=== PATIENT | female | born 1960 | race Caucasian/White ===

== ENCOUNTER → 2017-03-16 | Outpatient (CLI) | payer SELFPAY ==
[~2017-03-16] MED LIST: CATHETER FLUSH 10 ML SYR IV PRN; IOHEXOL 350 MG/ML 100 ML (OMNIPAQUE 350) VIAL IV ONE; NS 100 ML (IVPB) BAG IV ONE
--- NOTE | 2017-03-16 17:52 | Diagnostic Imaging Report ---
PROCEDURE: CT chest with contrast only. TECHNIQUE: Multiple contiguous axial images were obtained through the chest after administration of intravenous contrast. INDICATION: Coughing. History given of lung nodule. No previous for comparison. FINDINGS: The lungs show hyperaeration. There is basilar scarring on the left. There is also some pleural plaquing anteriorly on the left which contains calcification. This may explain the density on outside chest x-ray. There is also a calcified granuloma on the right within the right upper lobe measuring 1.5 cm. Aorta and pulmonary arteries show normal enhancement following IV contrast. No mediastinal or hilar adenopathy of pathologic size. No pleural effusions or pericardial effusions. IMPRESSION: 1. 1.5 cm calcified granuloma in the right upper lobe. 2. There is some pleural plaquing anteriorly on the left chest wall with calcification. 3. There is scarring in the left lung base along the costophrenic angle. Dictated on workstation # [id number]
== END ==
LOC: RAD 15:43
PROVIDERS: ATTEND Nurse Practitioner Family
DX: J84.10 Pulmonary fibrosis, unspecified (principal); J92.9 Pleural plaque without asbestos
CPT/HCPCS: 71260

== ENCOUNTER → 2017-07-17 | Outpatient (CLI) | payer SELFPAY ==
[~2017-07-17] MED LIST changes: +AMIT10TA6 PO; -CATHETER FLUSH 10 ML SYR IV PRN; +DULO30CA3 PO; +GABA600T PO; +MELO15TA14 PO; +METH750T3 PO; -NS 100 ML (IVPB) BAG IV ONE; +NS 250 ML (IVPB) BAG IV ONE; +SIMV20TA3 PO; +TRAM50TA2 PO
--- NOTE | 2017-07-17 08:17 | Diagnostic Imaging Report ---
PROCEDURE: CT abdomen and pelvis with and without contrast. TECHNIQUE: Precontrast acquisitions were acquired through the abdomen and pelvis. Multiple contiguous axial images were obtained through the abdomen and pelvis after the administration of intravenous contrast. INDICATION: Left lower quadrant abdominal pain. No focal hepatic or splenic lesion is identified. Gallbladder, pancreas and adrenal glands are unremarkable. There is also a normal appearance to both kidneys without evidence of free fluid in the abdomen or pelvis. There is diffuse fluid distention of colon and multiple small bowel loops. No definite transition point is seen and there is no evidence of localized inflammation. The appendix is unremarkable in retrocecal location. IMPRESSION: Fluid distention of bowel without definite transition point to indicate obstruction. Otherwise, no acute abnormalities identified. Dictated by: Dictated on workstation # [id number]
== END ==
LOC: RAD 07:14
PROVIDERS: ATTEND Internal Medicine Gastroenterology
DX: R10.32 Left lower quadrant pain (principal)
CPT/HCPCS: 74178

== ENCOUNTER 2017-10-10 16:57 | Emergency (ER) | payer OTHER ==
[~2017-10-10] VITALS: Ht 177.8 cm; Wt 43.1 kg
[2017-10-10] MEDS ORDERED: GABA600T PO (17:29)
[2017-10-10] MEDS ORDERED: SIMV20TA3 PO (17:29)
[2017-10-10] MEDS ORDERED: AMIT10TA6 PO (17:29)
[2017-10-10] MEDS ORDERED: MELO15TA14 PO (17:29)
[2017-10-10] MEDS ORDERED: DULO30CA3 PO (17:29)
[2017-10-10] MEDS ORDERED: METH750T3 PO (17:29)
[2017-10-10] MEDS ORDERED: TRAM50TA2 PO (17:29)
[2017-10-10] MEDS ORDERED: CYCLOBENZAPRINE 10 MG (FLEXERIL) TAB PO STA (17:42)
--- NOTE | 2017-10-10 17:48 | ED Back Pain ---
General Chief Complaint: Back Problems Stated Complaint: BACK PAIN Nursing Triage Note: PT REPORTS SHE LEANED OVER ET STRAINED RIGHT LATERAL BACK AT 1500. PAIN IS NOT SUBSIDING DESPITE PT'S REGULAR PAIN CONTROL MEDS. Nursing Sepsis Screen: No Definite Risk History of Present Illness Date Seen by Provider: Oct 10, 2017 Time Seen by Provider: 17:35 Initial Comments 57-year-old female presents for right-sided low back pain. She reports that at 1500 today she was leaning to the right when she felt a pulling sensation in her right lower back. Since then she's been having significant pain. She takes multiple medications for pain and muscle spasms related to her fibromyalgia. She last took tramadol at 0900 this morning. She denies any bowel or bladder changes since the injury. Denies any radicular or paresthesia symptoms in either lower extremity. Allergies and Home Medications Allergies Coded Allergies: carisoprodol (Unverified Adverse Reaction, Unknown, 10/10/17) Home Medications Amitriptyline HCl 10 Mg Tablet, 30 MG PO HS, (Reported) Duloxetine HCl 30 Mg Capsule.dr, 30 MG PO DAILY, (Reported) Gabapentin 600 Mg Tablet, 600 MG PO BID, (Reported) Meloxicam 15 Mg Tablet, 15 MG PO DAILY, (Reported) Methocarbamol 750 Mg Tablet, 750 MG PO BID, (Reported) Simvastatin 20 Mg Tablet, 20 MG PO DAILY, (Reported) Tramadol HCl 50 Mg Tablet, 50 MG PO BID, (Reported) Patient Home Medication List Home Medication List Reviewed: Yes Constitutional: no symptoms reported, see HPI Musculoskeletal: see HPI, back pain All Other Systems Reviewed Negative Unless Noted: Yes Past Lwlysxc-Ztyhet-Xnvyuh Hx Past Med/Social Hx: Reviewed Nursing Past Med/Soc Hx Patient Social History Alcohol Use: Denies Use Recreational Drug Use: No Smoking Status: Current Everyday Smoker Type Used: Cigarettes Recent Foreign Travel: No Contact w/Someone Who Travel: No Recent Infectious Disease Expo: No Recent Hopitalizations: No Physical Abuse: No Sexual Abuse: No Mistreated: No Fear: No Seasonal Allergies Seasonal Allergies: No Past Medical History Surgeries: Yes (LAPAROSCOPY, CSPINE SURGERY) Orthopedic Respiratory: No Cardiac: No Neurological: Yes Headaches /Migraines, Neuropathy Genitourinary: No Musculoskeletal: Yes (BONE SPURS) Arthritis, Fibromyalgia Endocrine: No Cancer: No Psychosocial: No Nursing Suicide Risk Score: 0 Integumentary: No Blood Disorders: No Physical Exam Vital Signs Vital Signs - First Documented 10/10/17 17:19 Temp 97.8 Pulse 71 Resp 16 B/P (MAP) 133/81 (98) Pulse Ox 94 O2 Delivery Room Air Capillary Refill : Less Than 3 Seconds Height, Weight, BMI Height: 5', 10.00" Weight: 95lbs oz, 43.872678fi Method:Stated ,BMI General Appearance: No Apparent Distress, WD/WN, Thin Neck: Full Range of Motion, Normal Inspection, Non Tender, Supple Cardiovascular: Regular Rate, Rhythm, No Murmur, Normal Peripheral Pulses Respiratory: Chest Non Tender, Lungs Clear, Normal Breath Sounds Gastrointestinal: Normal Bowel Sounds, Non Tender, Soft Back: Decreased Range of Motion, Muscle Spasm; No Vertebral Tenderness; Other ( right paraspinal lumbar tenderness. Limitation of motion lumbar spine secondary to pain. PowerV/V L5 to S1.) Neurologic/Psychiatric: Alert, Oriented x3, No Motor/Sensory Deficits, Normal Mood/Affect Skin: Normal Color, Warm/Dry Progress/Results/Core Measures Results/Orders My Orders Orders - WILLY ORTIZ Cyclobenzaprine Tablet (Flexeril Tablet) (10/10/17 17:42) Tramadol Tablet (Ultram Tablet) (10/10/17 17:42) Vital Signs/I&O 10/10/17 10/10/17 17:19 18:50 Temp 97.8 Pulse 71 74 Resp 16 16 B/P (MAP) 133/81 (98) 127/82 Pulse Ox 94 95 O2 Delivery Room Air Room Air Blood Pressure Mean: 98 Departure Impression Primary Impression: Lumbar strain Qualified Codes: S39.012A - Strain of muscle, fascia and tendon of lower back , initial encounter Disposition: HOME, SELF-CARE Condition: Improved Departure-Patient Inst. Decision time for Depature: 18:20 Referrals: TRACY LOFTON DO (PCP) Primary Care Physician BANG ARDON (Family) Primary Care Physician Patient Instructions: Lumbar Muscle Strain (DC) Add. Discharge Instructions: Alternate between heat and ice to your low back for pain. Tomorrow you may begin gentle back stretches. Continue to use her muscle relaxant and pain medications that have been previously prescribed. Follow-up with your primary care provider in 2-3 days if symptoms are not improving. Return to emergency department for new, acute medical problems. All discharge instructions reviewed with patient and/or family. Voiced understanding. Copy Copies To 1: TRACY LOFTON AMY ARNP Oct 10, 2017 17:48
[2017-10-10 18:50] VITALS: BP 127/82
== END 2017-10-10 18:50 | disposition home or self-care (01) ==
LOC: EDUNIT# 16:57 → ER 16:59
DX: S39.012A Strain of muscle, fascia and tendon of lower back, initial encounter (principal); G43.909 Migraine, unspecified, not intractable, without status migrainosus; F17.210 Nicotine dependence, cigarettes, uncomplicated; Z88.8 Allergy status to other drugs, medicaments and biological substances; X50.0XXA Overexertion from strenuous movement or load, initial encounter
CPT/HCPCS: 99283

== ENCOUNTER 2017-12-08 08:12 | Day surgery (SDC) | payer OTHER ==
[~2017-12-08] VITALS: Ht 177.8 cm; Wt 43.1 kg
[~2017-12-08 08:12] MED LIST changes: -IOHEXOL 350 MG/ML 100 ML (OMNIPAQUE 350) VIAL IV ONE; -NS 250 ML (IVPB) BAG IV ONE
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
[2017-12-08] MEDS ORDERED: LACTATED RINGERS 1,000 ML IV STA (08:28)
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
[2017-12-08] MEDS ORDERED: LACTATED RINGERS 1,000 ML IV ONE (08:31)
--- OUTSIDE RECORDS SUMMARY | 2017-12-08 08:31 | XMS REPORT ---
Author Author BRI PATEL [facility] eClinical[employer] Address Unknown Phone Unavailable Care Team Providers Care Stockroom Attendant Name Role Phone BRI PATEL Unavailable Allergies No Known Allergies Problems Problem Type Condition ICD-9 Code Onset Dates Condition Status Problem Routine adult health maintenance V70.0 Active Problem Hypertension 401.9 Active Problem Neuropathic pain of shoulder 354.9 Active Problem Neuropathic pain of hand 354.9 Active Medications Medication Code System Code Instructions Start Date End Date Status Dosage Pravastatin Sodium [facility] [address]-66 20 MG Orally Once a day at night Dec 01, 2014 1 tablet Results No Known Results Summary Purpose eClinicalWorks Submission
--- OUTSIDE RECORDS SUMMARY | 2017-12-08 08:31 | XMS REPORT ---
Author Author BANG ARDON Organization [facility] Address [address] [place] [address] Care Team Providers Care Outbound Telemarketing Representative Name Role Phone BANG ARDON Unavailable PROBLEMS Type Condition ICD9-CM Code KFF41-VP Code Onset Dates Condition Status SNOMED Code Problem Difficulty swallowing R13.10 Active 59000813 Problem Essential hypertension I10 Active 19647656 Problem Cervicalgia M54.2 Active 4961328503832 Problem Neuropathic pain of hand G56.90 Active 419127543 Problem Tendonitis of ankle, left M77.52 Active 365933978 Problem Hypokalemia E87.6 Active 55467567 Problem Dyslipidemia E78.5 Active 526899611 Problem Tobacco abuse Z72.0 Active 54256564 Problem Fibromyalgia M79.7 Active 00494530 Problem Chronic pain due to injury G89.21 Active 162239811 ALLERGIES No Known Allergies SOCIAL HISTORY No smoking Hx information available PLAN OF CARE VITAL SIGNS MEDICATIONS Medication Instructions Dosage Frequency Start Date End Date Duration Status Tramadol HCl 50 mg Orally every 12 hours prn must last 28 days 1 tablet as needed for pain Active Hydrochlorothiazide 12.5 MG Orally Once a day 1 capsule 24h 90 days Active RESULTS No Results PROCEDURES No Known procedures IMMUNIZATIONS No Known Immunizations
--- OUTSIDE RECORDS SUMMARY | 2017-12-08 08:31 | XMS REPORT ---
Author Author BANG ARDON [facility] eClinicalWorks Address Unknown Phone Unavailable Care Team Providers Care Benefits Advisor Name Role Phone BANG ARDON CP Unavailable Allergies, Adverse Reactions, Alerts Substance Reaction Event Type Soma Rash Drug Allergy Problems Problem Type Condition Code Onset Dates Condition Status Problem Cervicalgia M54.2 Active Problem Neuropathic pain of hand G56.90 Active Problem Difficulty swallowing R13.10 Active Problem Hypokalemia E87.6 Active Problem Chronic pain due to injury G89.21 Active Problem Tendonitis of ankle, left M77.52 Active Problem Tobacco abuse Z72.0 Active Problem Essential hypertension I10 Active Problem Fibromyalgia M79.7 Active Problem Dyslipidemia E78.5 Active Assessment Acute non-recurrent maxillary sinusitis J01.00 Active Assessment Hypokalemia E87.6 Active Assessment Essential hypertension I10 Active Assessment Neuropathic pain of hand G56.90 Active Assessment Fibromyalgia M79.7 Active Assessment Chronic pain due to injury G89.21 Active Assessment Dyslipidemia E78.5 Active Assessment Cervicalgia M54.2 Active Medications Medication Code System Code Instructions Start Date End Date Status Dosage Methocarbamol [facility] [address]-24 750 MG Orally 4 times a day 1 tablet Meloxicam [facility] [address]-73 15 MG Orally Once a day 1 tablet Azithromycin [facility] [address]-52 250 MG Orally Once a day Feb 06, 2016 Feb 11, 2016 2 tablets on the first day, then 1 tablet daily for 4 days Amitriptyline HCl [facility] [address]-22 10 mg Orally Once a day (30mg total) 3 tablet at bedtime Tramadol HCl [facility] [address]-38 50 mg Orally every 12 hours prn must last 28 days 1 tablet as needed for pain Cymbalta [facility] [address]-71 30 MG Orally Once a day 1 capsule Gabapentin [facility] [address]-21 600 MG Orally Once a day (total of 900 mg) 1.5 tablet Simvastatin [facility] [address]-52 20 mg Orally Once a day 1 tablet in the evening Voltaren [facility] [address]-19 1 % Transdermal 2 times a day not defined Emjoi TENS ND 0 tens unit externally 2 times a day as directed Hydrochlorothiazide [facility] [address]-91 12.5 MG Orally Once a day 1 capsule Procedures Procedure Coding System Code Date Office Visit, Est Pt., Level 4 CPT-4 09478 Feb 06, 2016 Vital Signs Date/Time: Feb 06, 2016 Cardiac Monitoring Heart Rate 88 bpm Weight 101.8 lbs Height 5'8" in BMI 15.48 Index Blood Pressure Diastolic 68 mmHg Blood Pressure Systolic 108 mmHg Results No Known Results Summary Purpose eClinicalWorks Submission
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
--- OUTSIDE RECORDS SUMMARY | 2017-12-08 08:32 | XMS REPORT ---
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
--- OUTSIDE RECORDS SUMMARY | 2017-12-08 08:32 | XMS REPORT ---
Author Author BANG ARDON [facility] [employer] Address Unknown Phone Unavailable Care Team Providers Care Steam Fitter Helper Name Role Phone BANG ARDON Unavailable Allergies, Adverse Reactions, Alerts Substance Reaction [...] M79.7 Active Problem Dyslipidemia E78.5 Active Assessment Hypokalemia E87.6 Active Assessment Fibromyalgia M79.7 Active Assessment Tendonitis of ankle, left M77.52 Active Assessment Neuropathic pain of hand G56.90 Active Assessment Dyslipidemia E78.5 Active Assessment Chronic pain due to injury G89.21 Active Assessment Essential hypertension I10 Active Assessment Cervicalgia M54.2 Active Medications Medication Code System Code Instructions Start Date End Date Status Dosage Meloxicam [facility] [address]-38 15 MG Orally Once a day 1 tablet Tramadol HCl [facility] [address]-21 50 mg Orally every 12 hours prn must last 28 days 1 tablet as needed for pain Cymbalta [facility] [address]-04 30 MG Orally Once a day 1 capsule Voltaren [facility] [address]-68 1 % Transdermal 2 times a day not defined Methocarbamol [facility] [address]-44 750 MG Orally 4 times a day 1 tablet PredniSONE [facility] [address]-83 10 mg Orally twice a day Nov 06, 2015Nov 1 tablet Simvastatin [facility] [address]-27 20 mg Orally Once a day 1 tablet in the evening Hydrochlorothiazide [facility] [address]-10 12.5 MG Orally Once a day 1 capsule Amitriptyline HCl [facility] [address]-81 10 mg Orally Once a day (30mg total) 3 tablet at bedtime Emjoi TENS NDC 0 tens unit externally 2 times a day as directed Gabapentin [facility] [address]-20 600 MG Orally Once a day (total of 900 mg) 1.5 tablet Procedures Procedure Coding System Code Date LIPID PANEL CPT-4 26443 Nov 06, 2015 VENIPUNCT, ROUTINE* CPT-4 27912 Nov 06, 2015 COMPREHEN METABOLIC PANEL CPT-4 48089 Nov 06, 2015 Office Visit, Est Pt., Level 4 CPT-4 09099 Nov 06, 2015 Vital Signs Date/Time: Nov 06, 2015 Cardiac Monitoring Heart Rate 80 bpm Weight 102.6 lbs Height 5'8" in BMI 15.60 Index Blood Pressure Diastolic 54 mmHg Blood Pressure Systolic 92 mmHg Results No Known Results Summary Purpose eClinicalWorks Submission
--- OUTSIDE RECORDS SUMMARY | 2017-12-08 08:33 | XMS REPORT ---
Author Author BANG ARDON [facility] [employer] Address Unknown Phone Unavailable Care Team Providers Care Medical Billing Supervisor Name Role Phone BANG ARDON CP Unavailable [...] E78.5 Active Assessment Hypokalemia E87.6 Active Assessment Essential hypertension I10 Active Assessment Neuropathic pain of hand G56.90 Active Assessment Fibromyalgia M79.7 Active Assessment Chronic pain due to injury G89.21 Active Assessment Dyslipidemia E78.5 Active Assessment Cervicalgia M54.2 Active Medications Medication Code System Code Instructions Start Date End Date Status Dosage Simvastatin [facility] [address]-10 20 mg Orally Once a day 1 tablet in the evening Amitriptyline HCl [facility] [address]-48 10 mg Orally Once a day (30mg total) 3 tablet at bedtime Methocarbamol [facility] [address]-50 750 MG Orally 4 times a day 1 tablet Emjoi TENS [facility] 0 tens unit externally 2 times a day as directed Cymbalta [facility] [address]-62 30 MG Orally Once a day 1 capsule Gabapentin [facility] [address]-49 600 MG Orally Once a day (total of 900 mg) 1.5 tablet Hydrochlorothiazide [facility] [address]-52 12.5 MG Orally Once a day 1 capsule Voltaren [facility] [address]-44 1 % Transdermal 2 times a day not defined Meloxicam [facility] [address]-70 15 MG Orally Once a day 1 tablet Tramadol HCl [facility] [address]-48 50 mg Orally every 12 hours prn must last 28 days 1 tablet as needed for pain Procedures Procedure Coding System Code Date Office Visit, Est Pt., Level 4 CPT-4 17205 Dec 05, 2015 Vital Signs Date/Time: Dec 05, 2015 Cardiac Monitoring Heart Rate 74 bpm Weight 100.6 lbs Height 5'8" in BMI 15.29 Index Blood Pressure Diastolic 62 mmHg Blood Pressure Systolic 90 mmHg Results No Known Results Summary Purpose eClinicalWorks Submission
--- OUTSIDE RECORDS SUMMARY | 2017-12-08 08:33 | XMS REPORT ---
Author BRI Tello [facility] [employer] Address Unknown Phone Unavailable Care Team Providers Care Office System Analyst Name Role Phone BRI PATEL CP Unavailable Allergies, Adverse Reactions, Alerts Substance Reaction Event Type Soma Rash Drug Allergy Problems Problem Type Condition ICD-9 Code Onset Dates Condition Status Problem Routine adult health maintenance V70.0 Active Problem Hypertension 401.9 Active Problem Neuropathic pain of shoulder 354.9 Active Assessment Routine adult health maintenance V70.0 Active Problem Neuropathic pain of hand 354.9 Active Assessment Neuropathic pain of shoulder 354.9 Active Medications Medication Code System Code Instructions Start Date End Date Status Dosage Zofran [facility] [address]-86 4 MG Orally 2 times a day Nov 13, 2014 1 tablet Gabapentin [facility] [address]-76 600 MG Orally Three times a day 1 capsule Methocarbamol [facility] [address]-97 750 MG Orally 4 times a day 1 tablet Meloxicam [facility] [address]-67 15 MG Orally Once a day 1 tablet Voltaren [facility] [address]-47 1 % Transdermal 2 times a day not defined Tramadol HCl [facility] [address]-59 50 MG Orally every 12 hours 1 tablet as needed Amitriptyline HCl [facility] [address]-91 30 Orally Once a day October 16, 2014 1 tablet at bedtime Hydrochlorothiazide [facility] [address]-99 12.5 MG Orally Once a day 1 capsule Procedures Procedure Coding System Code Date COMPREHEN METABOLIC PANEL CPT-4 93973 Nov 28, 2014 LIPID PANEL CPT-4 25870 Nov 28, 2014 COMPLETE CBC W/AUTO DIFF WBC CPT-4 31549 Nov 28, 2014 VENIPUNCT, ROUTINE* CPT-4 27043 Nov 28, 2014 C-REACTIVE PROTEIN CPT-4 61593 Nov 28, 2014 ASSAY THYROID STIM HORMONE CPT-4 13171 Nov 28, 2014 Office Visit, Est Pt., Level 3 CPT-4 45995 Nov 28, 2014 RBC SED RATE, AUTOMATED CPT-4 72257 Nov 28, 2014 Vital Signs Date/Time: Nov 28, 2014 Temperature 97.1 F Weight 97.8 lbs Height 5'8" in BMI 14.87 Index Blood Pressure Diastolic 58 mmHg Blood Pressure Systolic 90 mmHg Cardiac Monitoring Heart Rate 72 bpm Results Name Result Date Reference Range Unit Abnormality Flag ROUTINE VENIPUNCTURE Summary Purpose eClinicalWorks Submission
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
--- OUTSIDE RECORDS SUMMARY | 2017-12-08 08:34 | XMS REPORT ---
Author Author BRI PATEL [facility] eClinical[employer] Address Unknown Phone Unavailable Care Team Providers Care Websphere Commerce Developer Name Role Phone BRI PATEL CP Unavailable Allergies No Known Allergies Problems Problem Type Condition Code Onset Dates Condition Status Problem Routine adult health maintenance V70.0 Active Problem Hypertension 401.9 Active Problem Neuropathic pain of shoulder 354.9 Active Problem Neuropathic pain of hand 354.9 Active Medications Medication Code System Code Instructions Start Date End Date Status Dosage Amitriptyline HCl [facility] [address]-12 10 MG Orally Once a day (30mg total) October 16, 2014 3 tablet at bedtime Hydrochlorothiazide [facility] [address]-52 12.5 MG Orally Once a day 1 capsule Meloxicam [facility] [address]-43 15 MG Orally Once a day 1 tablet Pravastatin Sodium [facility] [address]-95 40 MG Orally Once a day at night (20mg ) Dec 01, 2014 0.5 tablet Methocarbamol [facility] [address]-97 750 MG Orally 4 times a day 1 tablet Results No Known Results Summary Purpose eClinicalWorks Submission
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
--- OUTSIDE RECORDS SUMMARY | 2017-12-08 08:34 | XMS REPORT ---
Author Author BANG ARDON [facility] eClinicalWorks Address Unknown Phone Unavailable Care Team Providers Care Project Management Analyst Name Role Phone BANG ARDON CP Unavailable [...] M79.7 Active Problem Dyslipidemia E78.5 Active Assessment Screening breast examination Z12.39 Active Assessment Hypokalemia E87.6 Active Assessment Essential hypertension I10 Active Assessment Neuropathic pain of hand G56.90 Active Assessment Fibromyalgia M79.7 Active Assessment Chronic pain due to injury G89.21 Active Assessment Dyslipidemia E78.5 Active Assessment Cervicalgia M54.2 Active Medications Medication Code System Code Instructions Start Date End Date Status Dosage Gabapentin [facility] [address]-52 600 MG Orally Once a day (total of 900 mg) 1.5 tablet Amitriptyline HCl [facility] [address]-22 10 mg Orally Once a day (30mg total) 3 tablet at bedtime Voltaren [facility] [address]-04 1 % Transdermal 2 times a day not defined Methocarbamol [facility] [address]-97 750 MG Orally 4 times a day 1 tablet Emjoi TENS ND 0 tens unit externally 2 times a day as directed Hydrochlorothiazide [facility] [address]-91 12.5 MG Orally Once a day 1 capsule Simvastatin [facility] [address]-05 20 mg Orally Once a day 1 tablet in the evening Tramadol HCl [facility] [address]-99 50 mg Orally every 12 hours prn must last 28 days 1 tablet as needed for pain Meloxicam [facility] [address]-19 15 MG Orally Once a day 1 tablet Cymbalta [facility] [address]-09 30 MG Orally Once a day 1 capsule Procedures Procedure Coding System Code Date COMPLETE CBC W/AUTO DIFF WBC CPT-4 53807 Jan 09, 2016 Office Visit, Est Pt., Level 5 CPT-4 46483 Jan 09, 2016 COMPREHEN METABOLIC PANEL CPT-4 85577 Jan 09, 2016 VENIPUNCT, ROUTINE* CPT-4 46230 Jan 09, 2016 Vital Signs Date/Time: Jan 09, 2016 Cardiac Monitoring Heart Rate 90 bpm Weight 100 lbs Height 5'8" in BMI 15.20 Index Blood Pressure Diastolic 78 mmHg Blood Pressure Systolic 120 mmHg Results Name Result Date Reference Range Unit Abnormality Flag CMP ----Calcium, Serum 9.4 31504957 8.7-10.2 mg/dL ----Carbon Dioxide, Total 28 04815419 18-29 mmol/L ----ALT (SGPT) 14 [id number] 0-32 IU/L ----Creatinine, Serum 0.62 36942618 0.57-1.00 mg/dL ----AST (SGOT) 13 76689397 0-40 IU/L ----eGFR If NonAfricn Am 101 [id number] >59 mL/min/1.73 ----Alkaline Phosphatase, S 81 94540808 39-117 IU/L ----eGFR If Africn Am 117 90277847 >59 mL/min/1.73 ----Bilirubin, Total 0.7 46707336 0.0-1.2 mg/dL ----BUN/Creatinine Ratio 13 20160109 9-23 ----A/G Ratio 2.0 04828915 1.1-2.5 ----Sodium, Serum 141 75399138 134-144 mmol/L ----Globulin, Total 2.2 43137492 1.5-4.5 g/dL ----Potassium, Serum 4.5 90827164 3.5-5.2 mmol/L ----Glucose, Serum 89 97978861 65-99 mg/dL ----Chloride, Serum 98 42962843 97-108 mmol/L ----Albumin, Serum 4.5 78624294 3.5-5.5 g/dL ----BUN 8 08500814 6-24 mg/dL ----Protein, Total, Serum 6.7 83952726 6.0-8.5 g/dL Mammogram, Bilateral Screening ROUTINE VENIPUNCTURE CBC ----MCHC 33.7 84652119 31.5-35.7 g/dL ----MCH 31.0 07248441 26.6-33.0 pg ----Platelets 267 79968426 150-379 x10E3/uL ----RDW 12.9 45669795 12.3-15.4 % ----Immature Granulocytes 0 44704203 % ----Immature Grans (Abs) 0.0 88582797 0.0-0.1 x10E3/uL ----Lymphs 36 79579632 % ----Monocytes 7 79285087 % ----Neutrophils 54 19855421 % ----Neutrophils (Absolute) 3.9 02882965 1.4-7.0 x10E3/uL ----Hematocrit 43.9 11334105 34.0-46.6 % ----Lymphs (Absolute) 2.6 84507993 0.7-3.1 x10E3/uL ----MCV 92 74152620 79-97 fL ----RBC 4.78 36211906 3.77-5.28 x10E6/uL ----Eos 2 75422687 % ----Basos 1 04771152 % ----Hemoglobin 14.8 95696917 11.1-15.9 g/dL ----Baso (Absolute) 0.0 34372056 0.0-0.2 x10E3/uL ----WBC 7.2 35683504 3.4-10.8 x10E3/uL ----Monocytes(Absolute) 0.5 40593690 0.1-0.9 x10E3/uL ----Eos (Absolute) 0.1 12011612 0.0-0.4 x10E3/uL Summary Purpose eClinicalWorks Submission
--- OUTSIDE RECORDS SUMMARY | 2017-12-08 08:34 | XMS REPORT ---
Author Author BRI PATEL [facility] eClinicalWorks Address Unknown Phone Unavailable Care Team Providers Care Salt Refiner Name Role Phone BRI PATEL CP Unavailable Allergies No Known Allergies Problems Problem Type Condition Code Onset Dates Condition Status Problem Essential hypertension I10 Active Problem Neuropathic pain of hand G56.90 Active Problem Swelling of both hands M79.89 Active Assessment Multiple thyroid nodules E04.2 Active Assessment Swelling of both hands M79.89 Active Problem Difficulty swallowing R13.10 Active Problem Cervicalgia M54.2 Active Medications No Known Medications Results No Known Results Summary Purpose eClinicalWorks Submission
--- OUTSIDE RECORDS SUMMARY | 2017-12-08 08:35 | XMS REPORT ---
Author BRI Tello [facility] eClinicalWorks Address Unknown Phone Unavailable Care Team Providers Care Doctor Of Radiology Name Role Phone BRI PATEL CP Unavailable Allergies, Adverse Reactions, Alerts Substance Reaction Event Type Soma Rash Drug Allergy Problems Problem Type Condition ICD-9 Code Onset Dates Condition Status Problem Routine adult health maintenance V70.0 Active Problem Hypertension 401.9 Active Problem Neuropathic pain of shoulder 354.9 Active Assessment Screening for breast cancer V76.10 Active Problem Neuropathic pain of hand 354.9 Active Assessment Well woman exam with routine gynecological exam V72.31 Active Medications Medication Code System Code Instructions Start Date End Date Status Dosage Methocarbamol [facility] [address]-30 750 MG Orally 4 times a day 1 tablet Tramadol HCl [facility] [address]-87 50 MG Orally every 12 hours 1 tablet as needed Gabapentin [facility] [address]-89 600 MG Orally Three times a day 1 capsule Pravastatin Sodium [facility] [address]-64 20 MG Orally Once a day at night Dec 01, 2014 1 tablet Hydrochlorothiazide [facility] [address]-99 12.5 MG Orally Once a day 1 capsule Amitriptyline HCl [facility] [address]-41 30 Orally Once a day October 16, 2014 1 tablet at bedtime Voltaren [facility] [address]-54 1 % Transdermal 2 times a day not defined Meloxicam [facility] [address]-68 15 MG Orally Once a day 1 tablet Procedures Procedure Coding System Code Date No Charge CPT-4 72838 Dec 12, 2014 CULTURE, BACTERIA, OTHER CPT-4 78035 Dec 12, 2014 TRICHOMONAS VAGIN, DIR PROBE CPT-4 11896 Dec 12, 2014 Preventive Care Est Pt. Age 40-64 CPT-4 49252 Dec 12, 2014 SPECIMEN HANDLING CPT-4 59156 Dec 12, 2014 Vital Signs Date/Time: Dec 12, 2014 Temperature 98.7 F Weight 100.4 lbs Height 5'8" in BMI 15.26 Index Blood Pressure Diastolic 66 mmHg Blood Pressure Systolic 102 mmHg Cardiac Monitoring Heart Rate 56 bpm Results Name Result Date Reference Range Unit Abnormality Flag CULTURE, GENITAL Summary Purpose eClinicalWorks Submission
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
--- OUTSIDE RECORDS SUMMARY | 2017-12-08 08:35 | XMS REPORT ---
Author Author BRI PATEL [facility] [employer] Address Unknown Phone Unavailable Care Team Providers Care Statistician Theoretical Name Role Phone BRI PATEL Unavailable Allergies No Known Allergies Problems Problem Type Condition Code Onset Dates Condition Status Problem Routine adult health maintenance V70.0 Active Problem Hypertension 401.9 Active Problem Neuropathic pain of shoulder 354.9 Active Problem Neuropathic pain of hand 354.9 Active Medications Medication Code System Code Instructions Start Date End Date Status Dosage Gabapentin [facility] [id number] 600 MG Orally Three times a day 1 tablet Results No Known Results Summary Purpose [employer]Clinical[employer] Submission
--- OUTSIDE RECORDS SUMMARY | 2017-12-08 08:35 | XMS REPORT ---
Author Author MARLYN GUZMAN Organization [employer] Address Unknown Phone Unavailable Care Team Providers Care Film Color Tester Name Role Phone MARLYN GUZMAN CP Unavailable Allergies No Known Allergies Problems Problem Type Condition Code Onset Dates Condition Status Problem Thyroid nodule E04.1 Active Problem Swelling of both hands M79.89 Active Problem Tobacco abuse Z72.0 Active Problem Difficulty swallowing R13.10 Active Problem Cervicalgia M54.2 Active Problem Essential hypertension I10 Active Problem Neuropathic pain of hand G56.90 Active Medications No Known Medications Results No Known Results Summary Purpose [employer]Clinical[employer] Submission
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
--- OUTSIDE RECORDS SUMMARY | 2017-12-08 08:35 | XMS REPORT ---
Author Author BRI PATEL [facility] eClinicalWorks Address Unknown Phone Unavailable Care Team Providers Care Construction Framer Name Role Phone BRI PATEL CP Unavailable Allergies No Known Allergies Problems Problem Type Condition ICD-9 Code Onset Dates Condition Status Problem Routine adult health maintenance V70.0 Active Problem Hypertension 401.9 Active Problem Neuropathic pain of shoulder 354.9 Active Problem Neuropathic pain of hand 354.9 Active Medications No Known Medications Results No Known Results Summary Purpose eClinicalWorks Submission
--- OUTSIDE RECORDS SUMMARY | 2017-12-08 08:35 | XMS REPORT ---
Author Author BANG ARDON Organization [facility] Address [address] [place] [address] Care Team Providers Care Stretcher And Drier Name Role Phone BANG ARDON Unavailable PROBLEMS Type Condition ICD9-CM Code [id number] Code Onset Dates Condition Status SNOMED Code Problem Difficulty swallowing R13.10 Active 79174272 Problem Essential hypertension I10 Active 86533513 Problem Cervicalgia M54.2 Active 3757592615465 Problem Neuropathic pain of hand G56.90 Active 085157486 Problem Tendonitis of ankle, left M77.52 Active 338203032 Problem Hypokalemia E87.6 Active 44103687 Problem Dyslipidemia E78.5 Active 876281461 Problem Tobacco abuse Z72.0 Active 54260329 Problem Fibromyalgia M79.7 Active 23110458 Problem Chronic pain due to injury G89.21 Active 471488909 ALLERGIES Unknown Allergies SOCIAL HISTORY No smoking Hx information [...]
--- OUTSIDE RECORDS SUMMARY | 2017-12-08 08:35 | XMS REPORT ---
Author BRI Tello [facility] eClinicalWorks Address Unknown Phone Unavailable Care Team Providers Care Baker Bread Name Role Phone BRI PATEL CP Unavailable Allergies, Adverse Reactions, Alerts Substance Reaction Event Type Soma Rash Drug Allergy Problems Problem Type Condition Code Onset Dates Condition Status Assessment Difficulty swallowing R13.10 Active Assessment Essential hypertension I10 Active Assessment Neuropathic pain of hand G56.90 Active Problem Essential hypertension I10 Active Problem Neuropathic pain of hand G56.90 Active Problem Swelling of both hands M79.89 Active Assessment Swelling of both hands M79.89 Active Assessment Cervicalgia M54.2 Active Problem Difficulty swallowing R13.10 Active Problem Cervicalgia M54.2 Active Medications Medication Code System Code Instructions Start Date End Date Status Dosage Tramadol HCl [facility] [address]-87 50 MG Orally every 12 hours 1 tablet as needed for pain Meloxicam [facility] [address]-95 15 MG Orally Once a day 1 tablet Amitriptyline HCl [facility] [address]-07 10 MG Orally Once a day (30mg total) October 16, 2014 3 tablet at bedtime Gabapentin [facility] [address]-27 600 MG Orally Three times a day 1 tablet Pravastatin Sodium [facility] [address]-39 40 MG Orally Once a day at night (20mg ) Dec 01, 2014 0.5 tablet Methocarbamol [facility] [address]-19 750 MG Orally 4 times a day 1 tablet Hydrochlorothiazide [facility] [address]-80 12.5 MG Orally Once a day 1 capsule Procedures Procedure Coding System Code Date RBC SED RATE, AUTOMATED CPT-4 89758 Mar 16, 2015 ASSAY THYROID STIM HORMONE CPT-4 89956 Mar 16, 2015 C-REACTIVE PROTEIN CPT-4 50879 Mar 16, 2015 Office Visit, Est Pt., Level 3 CPT-4 38504 Mar 16, 2015 ANTINUCLEAR ANTIBODIES CPT-4 62920 Mar 16, 2015 RHEUMATOID FACTOR, QUANT CPT-4 23098 Mar 16, 2015 VENIPUNCT, ROUTINE* CPT-4 77036 Mar 16, 2015 X-RAY EXAM OF NECK SPINE CPT-4 70784 Mar 16, 2015 Vital Signs Date/Time: Mar 16, 2015 Temperature 97.8 F Weight 102.0 lbs Height 5'8" in BMI 15.51 Index Blood Pressure Diastolic 68 mmHg Blood Pressure Systolic 100 mmHg Cardiac Monitoring Heart Rate 68 bpm Results Name Result Date Reference Range Unit Abnormality Flag ROUTINE VENIPUNCTURE Summary Purpose eClinicalWorks Submission
--- OUTSIDE RECORDS SUMMARY | 2017-12-08 08:35 | XMS REPORT ---
Author BRI Tello [facility] eClinicalWorks Address Unknown Phone Unavailable Care Team Providers Care Typing Section Chief Name Role Phone BRI PATEL CP Unavailable [...]
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
--- OUTSIDE RECORDS SUMMARY | 2017-12-08 08:37 | XMS REPORT ---
Author Author MARLYN GUZMAN Organization [employer] Address Unknown Phone Unavailable Care Team Providers Care Necktie Maker Name Role Phone MARLYN GUZMAN CP Unavailable Allergies, Adverse Reactions, Alerts Substance Reaction Event Type Soma Rash Drug Allergy Problems Problem Type Condition Code Onset Dates Condition Status Assessment Neuropathic pain of hand G56.90 Active Assessment Essential hypertension I10 Active Assessment Swelling of both hands M79.89 Active Problem Thyroid nodule E04.1 Active Problem Swelling of both hands M79.89 Active Problem Tobacco abuse Z72.0 Active Problem Difficulty swallowing R13.10 Active Problem Cervicalgia M54.2 Active Problem Essential hypertension I10 Active Problem Neuropathic pain of hand G56.90 Active Assessment Dyslipidemia E78.5 Active Assessment Thyroid nodule E04.1 Active Assessment Tobacco abuse Z72.0 Active Assessment Cervicalgia M54.2 Active Medications Medication Code System Code Instructions Start Date End Date Status Dosage Gabapentin [facility] [address]-39 600 MG Orally Three times a day 1 tablet Amitriptyline HCl [facility] [address]-59 10 MG Orally Once a day (30mg total) October 16, 2014 3 tablet at bedtime Simvastatin [facility] [address]-64 20 MG Orally Once a day Apr 17, 2015 1 tablet in the evening Hydrochlorothiazide [facility] [address]-23 12.5 MG Orally Once a day 1 capsule Meloxicam [facility] [address]-05 15 MG Orally Once a day 1 tablet Methocarbamol [facility] [address]-33 750 MG Orally 4 times a day 1 tablet Tramadol HCl [facility] [address]-05 50 MG Orally every 12 hours 1 tablet as needed for pain Procedures Procedure Coding System Code Date Office Visit, Est Pt., Level 3 CPT-4 94960 Apr 17, 2015 Vital Signs Date/Time: Apr 17, 2015 Temperature 97.9 F Weight 105 lbs Height 5'8" in BMI 15.96 Index Blood Pressure Diastolic 86 mmHg Blood Pressure Systolic 118 mmHg Cardiac Monitoring Heart Rate 72 bpm Results No Known Results Summary Purpose [employer] Submission
--- OUTSIDE RECORDS SUMMARY | 2017-12-08 08:37 | XMS REPORT ---
Author Author BANG ARDON [facility] Address [address] [place] [address] Care Team Providers Care Phys Asst Name Role Phone BANG ARDON Unavailable PROBLEMS Type Condition ICD9-CM Code QZI37-ZM Code Onset Dates Condition Status SNOMED Code Problem Difficulty swallowing R13.10 Active 14141729 Problem Essential hypertension I10 Active 95514606 Problem Cervicalgia M54.2 Active 2211762491363 Problem Neuropathic pain of hand G56.90 Active 850479368 Problem Tendonitis of ankle, left M77.52 Active 059961647 Problem Hypokalemia E87.6 Active 23393048 Problem Dyslipidemia E78.5 Active 253824588 Problem Tobacco abuse Z72.0 Active 77470155 Problem Fibromyalgia M79.7 Active 37420329 Problem Chronic pain due to injury G89.21 Active 923094997 ALLERGIES Substance Reaction Event Type Date Status Soma Rash Drug Allergy Apr, Active SOCIAL HISTORY No smoking Hx information available PLAN OF CARE Activity Details Follow Up 3 Months Reason:Pain VITAL SIGNS Height 5'8" in 2016-04-29 Weight 106.1 lbs 2016-04-29 Temperature 97.8 degrees Fahrenheit 2016-04-29 Heart Rate 80 bpm 2016-04-29 Respiratory Rate 16 2016-04-29 BMI 16.13 kg/m2 2016-04-29 Blood pressure systolic 107 mmHg 2016-04-29 Blood pressure diastolic 76 mmHg 2016-04-29 MEDICATIONS Medication Instructions Dosage Frequency Start Date End Date Duration Status Gabapentin 600 MG Orally Once a day (total of 900 mg) 1.5 tablet Active Simvastatin 20 mg Orally Once a day 1 tablet in the evening 24h Active Emjoi TENS tens unit externally 2 times a day as directed 12h lifetime Active Tramadol HCl 50 mg Orally every 12 hours prn must last 28 days 1 tablet as needed for pain Active Hydrochlorothiazide 12.5 MG Orally Once a day 1 capsule 24h Active Voltaren 1 % Transdermal 2 times a day 12h Active Meloxicam 15 MG Orally Once a day 1 tablet 24h Active Methocarbamol 750 MG Orally 4 times a day 1 tablet 6h Active Azithromycin 250 MG Orally Once a day 2 tablets on the first day, then 1 tablet daily for 4 days 24h Apr, Apr, 5 day(s) Active Cymbalta 30 MG Orally Once a day 1 capsule 24h Active Amitriptyline HCl 10 mg Orally Once a day (30mg total) 3 tablet at bedtime Active RESULTS Name Result Date Reference Range VITAMIN B12 2016-04-29 Vitamin B12 [phone] MAGNESIUM, SERUM 2016-04-29 Magnesium, Serum 2.2 1.6-2.3 TSH 2016-04-29 TSH 1.520 0.450-4.500 CMP 2016-04-29 Glucose, Serum 81 65-99 BUN 11 6-24 Creatinine, Serum 0.61 0.57-1.00 eGFR If NonAfricn Am 102 >59 eGFR If Africn Am 117 >59 BUN/Creatinine Ratio 18 9-23 Sodium, Serum 145 134-144 Potassium, Serum 4.0 3.5-5.2 Chloride, Serum 101 96-106 Carbon Dioxide, Total 27 18-29 Calcium, Serum 9.3 8.7-10.2 Protein, Total, Serum 6.7 6.0-8.5 Albumin, Serum 4.4 3.5-5.5 Globulin, Total 2.3 1.5-4.5 A/G Ratio 1.9 1.1-2.5 Bilirubin, Total 0.3 0.0-1.2 Alkaline Phosphatase, S 86 39-117 AST (SGOT) 16 0-40 ALT (SGPT) 15 0-32 PROCEDURES Procedure Date Ordered Related Diagnosis Body Site COMPREHEN METABOLIC PANEL Apr 29, 2016 ASSAY OF MAGNESIUM Apr 29, 2016 ASSAY THYROID STIM HORMONE Apr 29, 2016 VITAMIN B-12 Apr 29, 2016 VENIPUNCT, ROUTINE* Apr 29, 2016 Office Visit, Est Pt., Level 5 Apr 29, 2016 IMMUNIZATIONS No Known Immunizations
--- OUTSIDE RECORDS SUMMARY | 2017-12-08 08:37 | XMS REPORT ---
Author Author BRI PATEL [facility] [employer] Address Unknown Phone Unavailable Care Team Providers Care Dining Service Supervisor Name Role Phone BRI PATEL CP Unavailable Allergies No Known Allergies Problems Problem Type Condition Code Onset Dates Condition Status Problem Routine adult health maintenance V70.0 Active Problem Hypertension 401.9 Active Problem Neuropathic pain of shoulder 354.9 Active Problem Neuropathic pain of hand 354.9 Active Medications Medication Code System Code Instructions Start Date End Date Status Dosage Tramadol HCl [facility] [address]-00 50 MG Orally every 12 hours. MUST HAVE APPT PRIOR TO NEXT REFILL. 1 tablet as needed for pain Results No Known Results Summary Purpose [employer] Submission
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
--- OUTSIDE RECORDS SUMMARY | 2017-12-08 08:37 | XMS REPORT ---
Author Author BRI PATEL [facility] [employer] Address Unknown Phone Unavailable Care Team Providers Care Fitter Type Bar And Segment Name Role Phone BRI PATEL CP Unavailable [...]
--- OUTSIDE RECORDS SUMMARY | 2017-12-08 08:37 | XMS REPORT | Continuity of Care Document ---
Author Author [facility] Organization [facility] Address Unknown Phone Unavailable Allergies Active Description Code Type Severity Reaction Onset Reported/Identified Relationship to Patient Clinical Status Yes No Allergy Information Available [id number] Drug Allergy Unknown N/A 2016 Yes carisoprodol [id number] Drug Allergy Unknown N/A 10/10/2017 Medications There is no data. Problems Date Dx Coded Attending Type Code Diagnosis Diagnosed By 03/20/2015 BRI PATEL MACHINE STUFFER AUTOMATIC Ot V76.12 03/21/2015 BRI PATEL MACHINE STUFFER AUTOMATIC Ot V76.12 04/23/2015 BRI PATEL MACHINE STUFFER AUTOMATIC Ot E04.1 04/23/2015 BRI PATEL MACHINE STUFFER AUTOMATIC Ot R13.10 04/23/2015 BRI PATEL MACHINE STUFFER AUTOMATIC Ot E04.1 04/23/2015 BRI PATEL MACHINE STUFFER AUTOMATIC Ot R13.10 05/21/2015 BRI PATEL MACHINE STUFFER AUTOMATIC Ot E04.1 05/21/2015 BRI PATEL MACHINE STUFFER AUTOMATIC Ot R13.10 07/17/2015 MADLBANG DRIVER GUIDE Ot D17.22 07/17/2015 BRI PATEL MACHINE STUFFER AUTOMATIC Ot V76.12 07/17/2015 BRI PATEL MACHINE STUFFER AUTOMATIC Ot E04.1 07/17/2015 BRI PATEL MACHINE STUFFER AUTOMATIC Ot R13.10 07/17/2015 MADL, BANG L DRIVER GUIDE Ot D17.22 09/18/2015 BRI PATEL MACHINE STUFFER AUTOMATIC Ot V76.12 OTH SCREEN MAMMO-MALIGN NEOPLASM OF ELLEN 09/18/2015 BRI PATEL MACHINE STUFFER AUTOMATIC Ot E04.1 NONTOXIC SINGLE THYROID NODULE 09/18/2015 BRI PATEL MACHINE STUFFER AUTOMATIC Ot R13.10 DYSPHAGIA, UNSPECIFIED 09/18/2015 MADL, BANG L DRIVER GUIDE Ot D17.22 BENIGN LIPOMATOUS NEOPLASM OF SKIN, SUBC 09/18/2015 MADL, BANG L DRIVER GUIDE Ot D17.22 BENIGN LIPOMATOUS NEOPLASM OF SKIN, SUBC 09/27/2015 PATEL, BRI Bambi MACHINE STUFFER AUTOMATIC Ot V76.12 OTH SCREEN MAMMO-MALIGN NEOPLASM OF ELLEN 09/27/2015 BRI PATEL MACHINE STUFFER AUTOMATIC Ot E04.1 NONTOXIC SINGLE THYROID NODULE 09/27/2015 AMANDA BRI Bambi MACHINE STUFFER AUTOMATIC Ot R13.10 DYSPHAGIA, UNSPECIFIED 09/27/2015 MADL, BANG L DRIVER GUIDE Ot D17.22 BENIGN LIPOMATOUS NEOPLASM OF SKIN, SUBC 09/28/2015 MADL, BANG L DRIVER GUIDE Ot E04.1 NONTOXIC SINGLE THYROID NODULE 09/28/2015 MADL, BANG L DRIVER GUIDE Ot E04.1 NONTOXIC SINGLE THYROID NODULE 10/05/2015 MADL, BANG L DRIVER GUIDE Ot D17.22 BENIGN LIPOMATOUS NEOPLASM OF SKIN, SUBC 01/16/2016 MADL, BANG L DRIVER GUIDE Ot Z12.31 ENCNTR SCREEN MAMMOGRAM FOR MALIGNANT NE 01/16/2016 MADL, BANG L DRIVER GUIDE Ot Z12.31 ENCNTR SCREEN MAMMOGRAM FOR MALIGNANT NE 01/28/2016 BRI PATEL MACHINE STUFFER AUTOMATIC Ot V76.12 OTH SCREEN MAMMO-MALIGN NEOPLASM OF ELLEN 01/28/2016 BRI PATEL MACHINE STUFFER AUTOMATIC Ot E04.1 NONTOXIC SINGLE THYROID NODULE 01/28/2016 BRI PATEL MACHINE STUFFER AUTOMATIC Ot R13.10 DYSPHAGIA, UNSPECIFIED 01/28/2016 MADL, BANG L DRIVER GUIDE Ot D17.22 BENIGN LIPOMATOUS NEOPLASM OF SKIN, SUBC 01/28/2016 MADL, BANG L DRIVER GUIDE Ot E04.1 NONTOXIC SINGLE THYROID NODULE 01/28/2016 MADL, BANG L DRIVER GUIDE Ot Z12.31 ENCNTR SCREEN MAMMOGRAM FOR MALIGNANT NE 01/28/2016 MADL, BANG L DRIVER GUIDE Ot Z12.31 ENCNTR SCREEN MAMMOGRAM FOR MALIGNANT NE 02/21/2016 MADL, BANG L DRIVER GUIDE Ot E04.1 NONTOXIC SINGLE THYROID NODULE 02/21/2016 MADL, BANG L DRIVER GUIDE Ot Z12.31 ENCNTR SCREEN MAMMOGRAM FOR MALIGNANT NE 03/16/2017 BRI PATEL MACHINE STUFFER AUTOMATIC Ot V76.12 OTH SCREEN MAMMO-MALIGN NEOPLASM OF ELLEN 03/16/2017 BRI PATEL MACHINE STUFFER AUTOMATIC Ot E04.1 NONTOXIC SINGLE THYROID NODULE 03/16/2017 BRI PATEL MACHINE STUFFER AUTOMATIC Ot R13.10 DYSPHAGIA, UNSPECIFIED 03/16/2017 MADL, BANG L DRIVER GUIDE Ot D17.22 BENIGN LIPOMATOUS NEOPLASM OF SKIN, SUBC 03/16/2017 MADL, BANG L DRIVER GUIDE Ot E04.1 NONTOXIC SINGLE THYROID NODULE 03/16/2017 MADL, BANG L DRIVER GUIDE Ot Z12.31 ENCNTR SCREEN MAMMOGRAM FOR MALIGNANT NE 03/16/2017 MADL, BANG L DRIVER GUIDE Ot J84.10 PULMONARY FIBROSIS, UNSPECIFIED 03/16/2017 MADL, BANG L DRIVER GUIDE Ot J92.9 PLEURAL PLAQUE WITHOUT ASBESTOS 07/15/2017 BRI PATEL MACHINE STUFFER AUTOMATIC Ot V76.12 OTH SCREEN MAMMO-MALIGN NEOPLASM OF ELLEN 07/15/2017 BRI PATEL MACHINE STUFFER AUTOMATIC Ot E04.1 NONTOXIC SINGLE THYROID NODULE 07/15/2017 BRI PATEL MACHINE STUFFER AUTOMATIC Ot R13.10 DYSPHAGIA, UNSPECIFIED 07/15/2017 MADL, BANG L DRIVER GUIDE Ot D17.22 BENIGN LIPOMATOUS NEOPLASM OF SKIN, SUBC 07/15/2017 MADL, BANG L DRIVER GUIDE Ot E04.1 NONTOXIC SINGLE THYROID NODULE 07/15/2017 MADL, BANG L DRIVER GUIDE Ot Z12.31 ENCNTR SCREEN MAMMOGRAM FOR MALIGNANT NE 07/15/2017 MADL, BANG L DRIVER GUIDE Ot J84.10 PULMONARY FIBROSIS, UNSPECIFIED 07/15/2017 MADL, BANG L DRIVER GUIDE Ot J92.9 PLEURAL PLAQUE WITHOUT ASBESTOS 07/17/2017 BRI PATEL MACHINE STUFFER AUTOMATIC Ot V76.12 OTH SCREEN MAMMO-MALIGN NEOPLASM OF ELLEN 07/17/2017 BRI PATEL MACHINE STUFFER AUTOMATIC Ot E04.1 NONTOXIC SINGLE THYROID NODULE 07/17/2017 BRI PATEL MACHINE STUFFER AUTOMATIC Ot R13.10 DYSPHAGIA, UNSPECIFIED 07/17/2017 MADL, BANG L DRIVER GUIDE Ot D17.22 BENIGN LIPOMATOUS NEOPLASM OF SKIN, SUBC 07/17/2017 MADL, BANG L DRIVER GUIDE Ot E04.1 NONTOXIC SINGLE THYROID NODULE 07/17/2017 MADL, BANG L DRIVER GUIDE Ot Z12.31 ENCNTR SCREEN MAMMOGRAM FOR MALIGNANT NE 07/17/2017 MADL, BANG L DRIVER GUIDE Ot J84.10 PULMONARY FIBROSIS, UNSPECIFIED 07/17/2017 MADL, BANG L DRIVER GUIDE Ot J92.9 PLEURAL PLAQUE WITHOUT ASBESTOS 10/10/2017 BRI PATEL MACHINE STUFFER AUTOMATIC Ot V76.12 OTH SCREEN MAMMO-MALIGN NEOPLASM OF ELLEN 10/10/2017 BRI PATEL MACHINE STUFFER AUTOMATIC Ot E04.1 NONTOXIC SINGLE THYROID NODULE 10/10/2017 BRI PATEL MACHINE STUFFER AUTOMATIC Ot R13.10 DYSPHAGIA, UNSPECIFIED 10/10/2017 MADL, BANG L DRIVER GUIDE Ot D17.22 BENIGN LIPOMATOUS NEOPLASM OF SKIN, SUBC 10/10/2017 MADL, BANG L DRIVER GUIDE Ot E04.1 NONTOXIC SINGLE THYROID NODULE 10/10/2017 MADL, BANG L DRIVER GUIDE Ot Z12.31 ENCNTR SCREEN MAMMOGRAM FOR MALIGNANT NE 10/10/2017 MADL, BANG L DRIVER GUIDE Ot J84.10 PULMONARY FIBROSIS, UNSPECIFIED 10/10/2017 MADL, BANG L DRIVER GUIDE Ot J92.9 PLEURAL PLAQUE WITHOUT ASBESTOS 10/10/2017 DALLIN RUSSO, DAVIN Ot R10.32 LEFT LOWER QUADRANT PAIN 10/10/2017 ANGELWILLY Yang DRIVER GUIDE Ot F17.210 NICOTINE DEPENDENCE, CIGARETTES, UNCOMPL 10/10/2017 WILLY ORTIZ DRIVER GUIDE Ot G43.909 MIGRAINE, UNSP, NOT INTRACTABLE, WITHOUT 10/10/2017 ANGEL, WILLY DRIVER GUIDE Ot M54.5 LOW BACK PAIN 10/10/2017 ANGEL, WILLY DRIVER GUIDE Ot S39.012A STRAIN OF MUSCLE, FASCIA AND TENDON OF L 10/10/2017 ANGEL, WILLY DRIVER GUIDE Ot X50.0XXA OVEREXERTION FROM STRENUOUS MOVEMENT OR 10/10/2017 ANGEL, WILLY DRIVER GUIDE Ot Z88.8 ALLERGY STATUS TO OTH DRUG/MEDS/BIOL SUB 10/12/2017 ANGEL, WILLY DRIVER GUIDE Ot F17.210 NICOTINE DEPENDENCE, CIGARETTES, UNCOMPL 10/12/2017 ANGEL, WILLY DRIVER GUIDE Ot G43.909 MIGRAINE, UNSP, NOT INTRACTABLE, WITHOUT 10/12/2017 ANGEL, WILLY DRIVER GUIDE Ot M54.5 LOW BACK PAIN 10/12/2017 ANGEL, WILLY DRIVER GUIDE Ot S39.012A STRAIN OF MUSCLE, FASCIA AND TENDON OF L 10/12/2017 ANGEL, WILLY DRIVER GUIDE Ot X50.0XXA OVEREXERTION FROM STRENUOUS MOVEMENT OR 10/12/2017 ANGEL, WILLY DRIVER GUIDE Ot Z88.8 ALLERGY STATUS TO OTH DRUG/MEDS/BIOL SUB 10/23/2017 BRI PATEL MACHINE STUFFER AUTOMATIC Ot V76.12 OTH SCREEN MAMMO-MALIGN NEOPLASM OF ELLEN 10/23/2017 BRI PATEL MACHINE STUFFER AUTOMATIC Ot E04.1 NONTOXIC SINGLE THYROID NODULE 10/23/2017 BRI PATEL MACHINE STUFFER AUTOMATIC Ot R13.10 DYSPHAGIA, UNSPECIFIED 10/23/2017 MADL, BANG L DRIVER GUIDE Ot D17.22 BENIGN LIPOMATOUS NEOPLASM OF SKIN, SUBC 10/23/2017 MADL, BANG L DRIVER GUIDE Ot E04.1 NONTOXIC SINGLE THYROID NODULE 10/23/2017 MADL, BANG L DRIVER GUIDE Ot Z12.31 ENCNTR SCREEN MAMMOGRAM FOR MALIGNANT NE 10/23/2017 MADL, BANG L DRIVER GUIDE Ot J84.10 PULMONARY FIBROSIS, UNSPECIFIED 10/23/2017 MADL, BANG L DRIVER GUIDE Ot J92.9 PLEURAL PLAQUE WITHOUT ASBESTOS 10/23/2017 DALLIN RUSSO, DAVIN Ot R10.32 LEFT LOWER QUADRANT PAIN 10/23/2017 BRI PATEL MACHINE STUFFER AUTOMATIC Ot V76.12 OTH SCREEN MAMMO-MALIGN NEOPLASM OF ELLEN 10/23/2017 PATEL, BRI A MACHINE STUFFER AUTOMATIC Ot E04.1 NONTOXIC SINGLE THYROID NODULE 10/23/2017 BRI PATEL MACHINE STUFFER AUTOMATIC Ot R13.10 DYSPHAGIA, UNSPECIFIED 10/23/2017 MADL, BANG Hudson DRIVER GUIDE Ot D17.22 BENIGN LIPOMATOUS NEOPLASM OF SKIN, SUBC 10/23/2017 MADLBANG DRIVER GUIDE Ot E04.1 NONTOXIC SINGLE THYROID NODULE 10/23/2017 PINALBANG DRIVER GUIDE Ot Z12.31 ENCNTR SCREEN MAMMOGRAM FOR MALIGNANT NE 10/23/2017 PINAL, BANG Hudson DRIVER GUIDE Ot J84.10 PULMONARY FIBROSIS, UNSPECIFIED 10/23/2017 MADL, BANG Hudson DRIVER GUIDE Ot J92.9 PLEURAL PLAQUE WITHOUT ASBESTOS 10/23/2017 DALLIN RUSSO, DAVIN Ot R10.32 LEFT LOWER QUADRANT PAIN Procedures There is no data. Results Test Result Range CBC With Differential/Platelet - 01/09/16 12:03 WBC 7.2 x10E3/uL 3.4-10.8 RBC 4.78 x10E6/uL 3.77-5.28 Hemoglobin 14.8 g/dL 11.1-15.9 Hematocrit 43.9 % 34.0-46.6 MCV 92 fL 79-97 MCH 31.0 pg 26.6-33.0 MCHC 33.7 g/dL 31.5-35.7 RDW 12.9 % 12.3-15.4 Platelets 267 x10E3/uL 150-379 Neutrophils 54 % Lymphs 36 % Monocytes 7 % Eos 2 % Basos 1 % Neutrophils (Absolute) 3.9 x10E3/uL 1.4-7.0 Lymphs (Absolute) 2.6 x10E3/uL 0.7-3.1 Monocytes(Absolute) 0.5 x10E3/uL 0.1-0.9 Eos (Absolute) 0.1 x10E3/uL 0.0-0.4 Baso (Absolute) 0.0 x10E3/uL 0.0-0.2 Immature Granulocytes 0 % Immature Grans (Abs) 0.0 x10E3/uL 0.0-0.1 Comp. Metabolic Panel (14) - 01/09/16 12:03 Glucose, Serum 89 mg/dL 65-99 BUN 8 mg/dL 6-24 Creatinine, Serum 0.62 mg/dL 0.57-1.00 eGFR If NonAfricn Am 101 mL/min/1.73 >59 eGFR If Africn Am 117 mL/min/1.73 >59 BUN/Creatinine Ratio 13 9-23 Sodium, Serum 141 mmol/L 134-144 Potassium, Serum 4.5 mmol/L 3.5-5.2 Chloride, Serum 98 mmol/L 97-108 Carbon Dioxide, Total 28 mmol/L 18-29 Calcium, Serum 9.4 mg/dL 8.7-10.2 Protein, Total, Serum 6.7 g/dL 6.0-8.5 Albumin, Serum 4.5 g/dL 3.5-5.5 Globulin, Total 2.2 g/dL 1.5-4.5 A/G Ratio 2.0 1.1-2.5 Bilirubin, Total 0.7 mg/dL 0.0-1.2 Alkaline Phosphatase, S 81 IU/L 39-117 AST (SGOT) 13 IU/L 0-40 ALT (SGPT) 14 IU/L 0-32 Comp. Metabolic Panel (14) - 04/29/16 16:36 Glucose, Serum 81 mg/dL 65-99 BUN 11 mg/dL 6-24 Creatinine, Serum 0.61 mg/dL 0.57-1.00 eGFR If NonAfricn Am 102 mL/min/1.73 >59 eGFR If Africn Am 117 mL/min/1.73 >59 BUN/Creatinine Ratio 18 9-23 Sodium, Serum 145 mmol/L 134-144 Potassium, Serum 4.0 mmol/L 3.5-5.2 Chloride, Serum 101 mmol/L 96-106 Carbon Dioxide, Total 27 mmol/L 18-29 Calcium, Serum 9.3 mg/dL 8.7-10.2 Protein, Total, Serum 6.7 g/dL 6.0-8.5 Albumin, Serum 4.4 g/dL 3.5-5.5 Globulin, Total 2.3 g/dL 1.5-4.5 A/G Ratio 1.9 1.1-2.5 Bilirubin, Total 0.3 mg/dL 0.0-1.2 Alkaline Phosphatase, S 86 IU/L 39-117 AST (SGOT) 16 IU/L 0-40 ALT (SGPT) 15 IU/L 0-32 TSH - 04/29/16 16:36 TSH 1.520 uIU/mL 0.450-4.500 Vitamin B12 - 04/29/16 16:36 Vitamin B12 555 pg/mL 211-946 Magnesium, Serum - 04/29/16 16:36 Magnesium, Serum 2.2 mg/dL 1.6-2.3 CBC With Differential/Platelet - 07/09/16 13:24 WBC 8.7 x10E3/uL 3.4-10.8 RBC 5.09 x10E6/uL 3.77-5.28 Hemoglobin 15.4 g/dL 11.1-15.9 Hematocrit 45.4 % 34.0-46.6 MCV 89 fL 79-97 MCH 30.3 pg 26.6-33.0 MCHC 33.9 g/dL 31.5-35.7 RDW 12.7 % 12.3-15.4 Platelets 288 x10E3/uL 150-379 Neutrophils 62 % Lymphs 30 % Monocytes 6 % Eos 1 % Basos 1 % Neutrophils (Absolute) 5.5 x10E3/uL 1.4-7.0 Lymphs (Absolute) 2.6 x10E3/uL 0.7-3.1 Monocytes(Absolute) 0.5 x10E3/uL 0.1-0.9 Eos (Absolute) 0.1 x10E3/uL 0.0-0.4 Baso (Absolute) 0.0 x10E3/uL 0.0-0.2 Immature Granulocytes 0 % Immature Grans (Abs) 0.0 x10E3/uL 0.0-0.1 Comp. Metabolic Panel (14) - 07/09/16 13:24 Glucose, Serum 85 mg/dL 65-99 BUN 13 mg/dL 6-24 Creatinine, Serum 0.62 mg/dL 0.57-1.00 eGFR If NonAfricn Am 100 mL/min/1.73 >59 eGFR If Africn Am 116 mL/min/1.73 >59 BUN/Creatinine Ratio 21 9-23 Sodium, Serum 141 mmol/L 134-144 Potassium, Serum 4.5 mmol/L 3.5-5.2 Chloride, Serum 98 mmol/L 96-106 Carbon Dioxide, Total 25 mmol/L 18-29 Calcium, Serum 9.6 mg/dL 8.7-10.2 Protein, Total, Serum 6.8 g/dL 6.0-8.5 Albumin, Serum 4.9 g/dL 3.5-5.5 Globulin, Total 1.9 g/dL 1.5-4.5 A/G Ratio 2.6 1.2-2.2 Bilirubin, Total 0.5 mg/dL 0.0-1.2 Alkaline Phosphatase, S 73 IU/L 39-117 AST (SGOT) 15 IU/L 0-40 ALT (SGPT) 9 IU/L 0-32 Comp. Metabolic Panel (14) - 11/12/16 12:09 Glucose, Serum 72 mg/dL 65-99 BUN 11 mg/dL 6-24 Creatinine, Serum 0.71 mg/dL 0.57-1.00 eGFR If NonAfricn Am 95 mL/min/1.73 >59 eGFR If Africn Am 109 mL/min/1.73 >59 BUN/Creatinine Ratio 15 9-23 Sodium, Serum 142 mmol/L 134-144 Potassium, Serum 4.2 mmol/L 3.5-5.2 Chloride, Serum 98 mmol/L 96-106 Carbon Dioxide, Total 28 mmol/L 18-29 Calcium, Serum 9.6 mg/dL 8.7-10.2 Protein, Total, Serum 6.7 g/dL 6.0-8.5 Albumin, Serum 4.3 g/dL 3.5-5.5 Globulin, Total 2.4 g/dL 1.5-4.5 A/G Ratio 1.8 1.2-2.2 Bilirubin, Total 0.4 mg/dL 0.0-1.2 Alkaline Phosphatase, S 72 IU/L 39-117 AST (SGOT) 14 IU/L 0-40 ALT (SGPT) 13 IU/L 0-32 CMP - 02/18/17 13:06 GLUCOSE 87 mg/dL 65-99 UREA NITROGEN (BUN) 10 mg/dL 7-25 CREATININE 0.59 mg/dL 0.50-1.05 eGFR NON-AFR. BAHRAINI 102 mL/min/1.73m2 > OR=60 eGFR 118 mL/min/1.73m2 > OR=60 BUN/CREATININE RATIO NOT APPLICABLE (calc) 6-22 SODIUM 141 mmol/L 135-146 POTASSIUM 4.1 mmol/L 3.5-5.3 CHLORIDE 105 mmol/L 98-110 CARBON DIOXIDE 29 mmol/L 20-31 CALCIUM 9.6 mg/dL 8.6-10.4 PROTEIN, TOTAL 6.6 g/dL 6.1-8.1 ALBUMIN 4.4 g/dL 3.6-5.1 GLOBULIN 2.2 g/dL (calc) 1.9-3.7 ALBUMIN/GLOBULIN RATIO 2.0 (calc) 1.0-2.5 BILIRUBIN, TOTAL 0.7 mg/dL 0.2-1.2 ALKALINE PHOSPHATASE 64 U/L 33-130 AST 14 U/L 10-35 ALT 9 U/L 6-29 SPECIMEN INTEGRITY COMPROMISED - 05/12/17 14:10 SPECIMEN INTEGRITY COMPROMISED NRG CMP - 07/10/17 13:52 GLUCOSE 78 mg/dL 65-99 UREA NITROGEN (BUN) 13 mg/dL 7-25 CREATININE 0.56 mg/dL 0.50-1.05 eGFR NON-AFR. BAHRAINI 103 mL/min/1.73m2 > OR=60 eGFR 119 mL/min/1.73m2 > OR=60 BUN/CREATININE RATIO NOT APPLICABLE (calc) 6-22 SODIUM 143 mmol/L 135-146 POTASSIUM 3.8 mmol/L 3.5-5.3 CHLORIDE 105 mmol/L 98-110 CARBON DIOXIDE 30 mmol/L 20-31 CALCIUM 9.3 mg/dL 8.6-10.4 PROTEIN, TOTAL 6.7 g/dL 6.1-8.1 ALBUMIN 4.4 g/dL 3.6-5.1 GLOBULIN 2.3 g/dL (calc) 1.9-3.7 ALBUMIN/GLOBULIN RATIO 1.9 (calc) 1.0-2.5 BILIRUBIN, TOTAL 0.5 mg/dL 0.2-1.2 ALKALINE PHOSPHATASE 62 U/L 33-130 AST 10 U/L 10-35 ALT 8 U/L 6-29 CBC w/MANUAL DIFF - 07/10/17 13:52 WHITE BLOOD CELL COUNT 8.7 Thousand/uL 3.8-10.8 RED BLOOD CELL COUNT 4.83 Million/uL 3.80-5.10 HEMOGLOBIN 14.6 g/dL 11.7-15.5 HEMATOCRIT 44.4 % 35.0-45.0 MCV 91.9 fL 80.0-100.0 MCH 30.2 pg 27.0-33.0 MCHC 32.9 g/dL 32.0-36.0 RDW 12.3 % 11.0-15.0 PLATELET COUNT 240 Thousand/uL 140-400 MPV 9.3 fL 7.5-12.5 COMMENT(S) NRG LIPASE - 07/10/17 13:52 LIPASE 18 U/L 7-60 AMYLASE - 07/10/17 13:52 AMYLASE 29 U/L 21-101 DIFFERENTIAL, MANUAL - 07/10/17 13:52 ABSOLUTE NEUTROPHILS 4481 cells/uL 1080-5851 ABSOLUTE MONOCYTES 531 cells/uL 200-950 ABSOLUTE EOSINOPHILS 174 cells/uL 15-500 ABSOLUTE BASOPHILS 87 cells/uL 0-200 NEUTROPHILS 51.5 % NRG LYMPHOCYTES 39.4 % NRG MONOCYTES 6.1 % NRG EOSINOPHILS 2.0 % NRG BASOPHILS 1.0 % NRG ABSOLUTE LYMPHOCYTES 3428 cells/uL 850-3900 PLATELET ESTIMATION ADEQUATE ADEQUATE Encounters ACCT No. Visit Date/Time Discharge Status Pt. Type Provider Facility Loc./Unit Complaint [id number] 10/10/2017 16:59:00 10/10/2017 18:50:00 DIS Emergency ANGEL WILLY DRIVER GUIDE [facility] ER BACK PAIN [id number] 07/17/2017 07:14:00 07/17/2017 23:59:59 CLS Outpatient DAVIN ZAMARRIPA MD [facility] RAD R10.32 LLQ ABD PAIN [id number] 03/16/2017 15:43:00 03/16/2017 23:59:59 CLS Outpatient MADL, BANG L DRIVER GUIDE [facility] RAD R91.1 LUNG NODULE [id number] 01/15/2016 09:44:00 01/15/2016 23:59:59 CLS Outpatient MADL, BANG L DRIVER GUIDE [facility] RAD SCREENING [id number] 09/27/2015 12:49:00 09/27/2015 23:59:59 CLS Outpatient MADL, BANG L DRIVER GUIDE [facility] RAD THYROID NODULE [id number] 07/16/2015 08:50:00 07/16/2015 23:59:59 CLS Outpatient MADL, BANG L DRIVER GUIDE [facility] RAD LIPOMA OF UPPER LEFT EXTREMITY [id number] 03/20/2015 14:41:00 03/20/2015 23:59:59 CLS Outpatient BRI PATEL MACHINE STUFFER AUTOMATIC [facility] RAD DIFFICULTY SWALLOWING [id number] 12/26/2014 09:39:00 12/26/2014 23:59:59 CLS Outpatient BRI PATEL MACHINE STUFFER AUTOMATIC [facility] RAD SCREENING [id number] 01/10/2016 08:07:00 Document Registration [id number] 04/30/2016 10:05:00 Document Registration [id number] 07/10/2016 10:09:00 Document Registration [id number] 11/10/2017 10:00:00 11/10/2017 23:59:59 CLS Outpatient [facility] [id number] 07/10/2017 13:00:00 Document Registration [id number] 05/12/2017 13:20:00 Document Registration [id number] 02/18/2017 13:00:00 Document Registration [id number] 11/13/2016 08:40:00 Document Registration
[2017-12-08 08:42] VITALS: BP 113/74
[2017-12-08] MEDS ORDERED: D5 LR IV SOLUTION 1,000 ML IV SCH (08:45)
--- NOTE | 2017-12-08 08:50 | Progress Note-Pre Operative ---
Pre-Operative Progress Note H&P Reviewed The H&P was reviewed, patient examined and no changes noted. Date Seen by Provider: Dec 08, 2017 Time Seen by Provider: 08:49 Date H&P Reviewed: Dec 08, 2017 Time H&P Reviewed: 08:49 Pre-Operative Diagnosis: chronic diarrhea ZAIRA BECKMAN DO Dec 08, 2017 08:49
[2017-12-08] MEDS ORDERED: MIDAZOLAM 2 MG/2 ML (VERSED) VIAL ONE (09:24)
[2017-12-08] MEDS ORDERED: PROPOFOL INJECTION 50 ML IV ONE (09:24)
--- NOTE | 2017-12-08 10:11 | Anesthesia-General Post-Op ---
MAC Patient Condition Mental Status/LOC: Same as Preop Cardiovascular: Satisfactory Nausea/Vomiting: Absent Respiratory: Satisfactory Pain: Controlled Complications: Absent Post Op Complications Complications None Follow Up Care/Instructions Patient Instructions None needed. Anesthesiology Discharge Order Discharge Order Patient is doing well, no complaints, stable vital signs, no apparent adverse anesthesia problems. No complications reported per nursing. CARLOS KOWALSKI CRNA Dec 08, 2017 10:11
--- NOTE | 2017-12-08 10:40 | Progress Note-Post Operative ---
Post-Operative Progess Note Surgeon (s)/Tool Polishing Machine Operator (s) Surgeon ZAIRA BECKMAN DO Tool Polishing Machine Operator: na Pre-Operative Diagnosis chronic diarrhea Post-Operative Diagnosis normal colon Procedure & Operative Findings Date of Procedure 12/08/17 Procedure Performed/Findings colonoscopy with random cold biopsies Anesthesia Type per [facility] Estimated Blood Loss Estimated blood loss (mL): none Specimens/Packing Specimens Removed random colon ZAIRA BECKMAN DO Dec 08, 2017 10:40
--- NOTE | 2017-12-08 10:43 | Discharge Inst-Simple/Standard ---
Discharge Inst-Standard Patient Instructions/Follow Up Plan of Care/Instructions/FU: 2 weeks Anderson Activity as Tolerated: Yes Discharge Diet: Regular Diet ZAIRA BECKMAN DO Dec 08, 2017 10:43
[2017-12-08 10:45] VITALS: BP 117/72
[2017-12-08 11:15] VITALS: BP 138/88
[2017-12-08 11:22] VITALS: BP 138/88
--- NOTE | 2017-12-08 13:48 | OPERATIVE REPORT ---
DATE OF SERVICE: 12/08/2017 PREOPERATIVE DIAGNOSIS: Chronic diarrhea. POSTOPERATIVE DIAGNOSIS: Normal colon. PROCEDURE: Colonoscopy with random cold biopsies. SURGEON: Zaira Barron DO ANESTHESIA: Per MDA. ESTIMATED BLOOD LOSS: None. COMPLICATIONS: None. INDICATIONS: The patient is a 57-year-old female with chronic diarrhea. She understands risks and benefits of procedure and wished to proceed with procedure. Consent was signed and on the chart. DESCRIPTION OF PROCEDURE: The patient was taken to the endoscopy suite, placed in left lateral recumbent position. Timeout was performed. Digital rectal exam was performed. There were no palpable polyps, masses or ulcerations. Scope was inserted the rectum and advanced all the way to the cecum with minimal difficulty. Prep was fair with lots of irrigation and suction. There are no polyps, mass or ulcerations within the cecum. Scope was then continued slowly retracted back. There were no polyps, mass or ulcer in the cecum, ascending, transverse, descending and sigmoid colon. As the scope was being retracted back random cold biopsies were obtained. Once in the rectum, scope was also retroflexed noting no other pathology. Scope was returned to its normal position, slowly withdrawn until completely removed. The patient tolerated procedure well without any complications. She was taken to the recovery room in stable condition. RECOMMENDATIONS: The patient will follow up in the office in approximately 2 weeks to discuss pathology. She will need a repeat colonoscopy in 10 years unless family history of colon cancer or personal history of colon polyps. Job ID: [id number] DocumentID: [id number] Dictated Date: 12/08/2017 10:51:54 [place] Worker Date: 12/08/2017 13:47:47 Dictated By: ZAIRA BARRON DO
== END 2017-12-08 11:23 | disposition home or self-care (01) ==
LOC: ENDO 08:12
PROVIDERS: ATTEND Surgery
DX: K52.831 Collagenous colitis (principal); F17.210 Nicotine dependence, cigarettes, uncomplicated
CPT/HCPCS: 88305

== ENCOUNTER → 2018-11-23 | Outpatient (CLI) | payer OTHER ==
--- NOTE | 2018-11-23 17:28 | Diagnostic Imaging Report ---
INDICATION: Chronic bilateral foot pain. TIME OF EXAM: 09:01 a.m. FINDINGS: Two views of each foot were obtained. Generalized demineralization is noted. There are mild degenerative changes at the MTP joints bilaterally with joint space narrowing. Second through fifth MTP joints are intact. Phalanges appear to be intact. Mid foot and hind foot are unremarkable. No fractures are seen. No osseous erosive changes are identified. 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 No acute bony abnormality is detected. Dictated by: Dictated on workstation # [id number]
--- NOTE | 2018-11-23 17:30 | Diagnostic Imaging Report ---
INDICATION: Chronic bilateral hand pain. TIME OF EXAM: 09:05 a.m. FINDINGS: Two views of each hand were obtained. There is generalized demineralization. MCP and interphalangeal joints are intact. No osseous erosive changes are seen. There are no fractures identified. IMPRESSION: Demineralization. No acute bony abnormality is detected. Dictated by: Dictated on workstation # [id number]
--- NOTE | 2018-11-23 17:32 | Diagnostic Imaging Report ---
INDICATION: Chronic left knee pain. TIME OF EXAM: 09:03 a.m. FINDINGS: Two views of the left knee were obtained. Generalized demineralization is noted. Joint spaces are well maintained. Articular surfaces are smooth. No fracture, dislocation, or significant effusion is seen. IMPRESSION: No acute abnormality is detected. Dictated by: Dictated on workstation # [id number]
== END ==
LOC: RAD 08:39
PROVIDERS: ATTEND Family Medicine
DX: G89.29 Other chronic pain (principal); M19.072 Primary osteoarthritis, left ankle and foot; M19.071 Primary osteoarthritis, right ankle and foot; M79.642 Pain in left hand; M79.641 Pain in right hand; M25.562 Pain in left knee; M81.0 Age-related osteoporosis without current pathological fracture
CPT/HCPCS: 73560

== ENCOUNTER → 2018-12-02 | Outpatient (CLI) | payer SELFPAY ==
[2018-12-02 16:19] LABS: ABG BASE EXCESS 0.8 MMOL/L (-2.5-2.5); ABG OXYGEN SATURATION 94 % (94-100); ABG PCO2 43 MMHG (35-45); ABG PH 7.39 (7.37-7.43); ABG PO2 66 MMHG (79-93); ABG TCO2 26.8 MMOL/L (21.0-31.0); ALLENS TEST POSITIVE
[2018-12-02 16:22] LABS: PATIENT TEMP 97.1; VENTILATOR NO
== END ==
LOC: RT 15:12
PROVIDERS: ATTEND Nurse Practitioner Family
DX: J30.9 Allergic rhinitis, unspecified (principal); Z72.0 Tobacco use
CPT/HCPCS: 36600; 82805; 94761

== ENCOUNTER → 2018-12-10 | Outpatient (CLI) | payer OTHER | LOC: CARD 13:29 | PROVIDERS: ATTEND Internal Medicine Cardiovascular Disease | DX: R07.9 Chest pain, unspecified (principal) | CPT/HCPCS: 93306 ==

== ENCOUNTER → 2018-12-15 | Outpatient (CLI) | payer OTHER ==
[~2018-12-15] MED LIST changes: +CATHETER FLUSH 10 ML SYR IV PRN
--- NOTE | 2018-12-20 09:52 | STRESS TEST ---
DATE OF SERVICE: 12/15/2018 EXERCISE MYOVIEW STRESS TEST REPORT REFERRING PHYSICIAN: [facility]. Baseline heart rate is 62. Baseline blood pressure 152/75. Baseline EKG is sinus rhythm with no ischemic changes. In summary, the patient was injected with 10.37 mCi of technetium-99 Myoview and the resting images were obtained. She was able to exercise for 3 minutes on standard [place] protocol. With peak stress level EKG was showing nondiagnostic changes. During recovery, heart rate and blood pressure returned to baseline. Peak blood pressure was 151/71. The resting and stress images were reviewed and compared in the short axis, horizontal long axis, and vertical long axis views. Review of the images showed breast attenuation with typical female pattern. There is mild decreased uptake at the inferoseptum with subtle reversibility, SSS is 6, SDS 2, TID value 1.01. On the gated images, the left ventricle appeared to be normal size with normal contractility. Calculated ejection fraction 56%. CONCLUSION: 1. Poor exercise tolerance, a total of 3 minutes on standard [place] protocol, 4.6 METS achieving 92% of maximum expected heart rate. 2. Appropriate heart rate and blood pressure response to exercise returned to baseline during recovery. 3. Nondiagnostic EKG changes with exercise returned to baseline during recovery. 4. Breast attenuation with extracardiac attenuation, there is no significant ischemia or infarction on SPECT images. 5. Normal left ventricular size with normal contractility. Calculated ejection fraction 56%. Job ID: [id number] DocumentID: [id number] Dictated Date: 12/20/2018 07:48:35 Electrical Solderer Date: 12/20/2018 09:51:47 Dictated By: SARAH FLORES MD
== END ==
LOC: CARD 10:58
PROVIDERS: ATTEND Internal Medicine Cardiovascular Disease
DX: R07.9 Chest pain, unspecified (principal); R00.2 Palpitations; R06.02 Shortness of breath; Z72.0 Tobacco use
CPT/HCPCS: 78452; 93017

== ENCOUNTER → 2019-01-17 | Outpatient (CLI) | payer OTHER ==
[~2019-01-17] MED LIST changes: +HOLD METFORMIN - RECEIVED CONTRAST 20 ML VIAL IV SCH; +IOHEXOL 350 MG/ML 100 ML (OMNIPAQUE 350) VIAL IV ONE; +NS 100 ML (IVPB) BAG IV ONE; +RT-ALBUTEROL SULF 2.5 MG/3 ML PRE-MIX VIAL INH ONE
[2019-01-17 09:08] LABS: BUN/CREATININE RATIO 28; CREATININE SERUM 0.65 MG/DL (0.60-1.30); GFR ESTIMATED > 60
--- NOTE | 2019-01-17 15:22 | Diagnostic Imaging Report ---
EXAMINATION: CT Chest with intravenous contrast. TECHNIQUE: Multiple contiguous axial images were obtained through the chest after the uneventful administration of intravenous contrast. All CT scans use one or more of the following dose optimizing techniques: automated exposure control, MA and/or KvP adjustment based on a patient size and exam type, or iterative reconstruction. HISTORY: Cough and dyspnea FINDINGS: Comparison is 03/16/2017. The lungs are clear without edema or pneumonia. No pleural effusion or pneumothorax. No suspicious nodules. There is an unchanged calcified nodule in the right middle lobe measuring 15 mm. Lungs are emphysematous. There is mild atelectasis in the left lower lobe. There are left pleural calcifications. Heart size is normal. No pericardial effusion. Aorta is normal in caliber. There is no axillary, supraclavicular or mediastinal lymphadenopathy. Limited views of the upper abdomen are unremarkable. There are no suspicious osseus lesions. IMPRESSION: 1. Emphysematous but otherwise clear lungs. Dictated by: Dictated on workstation # [id number]
== END ==
LOC: RT 08:42
PROVIDERS: ATTEND Nurse Practitioner Family
DX: J43.9 Emphysema, unspecified (principal); J30.9 Allergic rhinitis, unspecified; Z72.0 Tobacco use
CPT/HCPCS: 36415; 71260; 82565; 84520; 94060; 94726; 94729

== ENCOUNTER → 2019-09-29 | Outpatient (CLI) | payer MEDICAID ==
[~2019-09-29] MED LIST changes: -CATHETER FLUSH 10 ML SYR IV PRN; -HOLD METFORMIN - RECEIVED CONTRAST 20 ML VIAL IV SCH; -IOHEXOL 350 MG/ML 100 ML (OMNIPAQUE 350) VIAL IV ONE; -NS 100 ML (IVPB) BAG IV ONE; -RT-ALBUTEROL SULF 2.5 MG/3 ML PRE-MIX VIAL INH ONE; +SIMV20TA26 PO; -SIMV20TA3 PO; -TRAM50TA2 PO; +TRM50T PO
--- NOTE | 2019-09-30 09:58 | Diagnostic Imaging Report ---
EXAM: Bilateral screening mammogram. The current study was also evaluated with a Computer Aided Detection (CAD) system. COMPARISON: This study was compared to the prior exams of 01/15/2016. There are no current complaints. FINDINGS: The fibroglandular tissue in both breasts is dense. This does limit the sensitivity of this exam. Overall, there does not appear to have been any significant change when compared to the prior study. No primary or secondary sign of malignancy is noted. IMPRESSION: 1. There is no radiographic evidence for malignancy. 2. The patient should have her annual bilateral screening mammogram on schedule in September of 2020. ACR category 1 ACR BI-RADS Category 1: Negative. Result letter will be mailed to the patient. Note: At least 10% of breast cancer is not imaged by mammography. Dictated by: Dictated on workstation # [id number]
== END ==
LOC: RAD 14:27
PROVIDERS: ATTEND Physician Assistant
DX: Z12.31 Encounter for screening mammogram for malignant neoplasm of breast (principal)
CPT/HCPCS: 77063; 77067

== ENCOUNTER → 2019-10-04 | Outpatient (CLI) | payer MEDICAID ==
--- NOTE | 2019-10-04 11:18 | Diagnostic Imaging Report ---
INDICATION: Screening for osteoporosis, postmenopausal state. COMPARISON: None available. FINDINGS: AP Spine L1-L4: [BMD (g/cm2): 0.803] [T-Score: -3.3] [Z-Score: -1.7] [BMD Previous: na] [BMD % Change: na] LT Hip Neck: [BMD (g/cm2): 0.563] [T-Score: -3.4] [Z-Score: -1.9] LT Hip Total: [BMD (g/cm2):0.548] [T-Score:-3.6] [Z-Score: -2.4] [BMD Previous: na] [BMD % Change: na] RT Hip Neck: [BMD (g/cm2):0.566] [T-Score:-3.4] [Z-Score:-1.9] RT Hip Total: [BMD (g/cm2):0.555] [T-score:-3.6] [Z-Score:-2.4] [BMD Previous:na] [BMD % Change:na] *Indicates significant change from prior examination based on 95% confidence level. World Health Organization criteria for BMD interpretation classify patients as Normal (T-score at or above -1.0), Osteopenic (T-score between -1.0 and -2.5) or Osteoporotic (T-score at or below -2.5). LIMITATIONS AND MODIFICATION: None. IMPRESSION: 1. Osteoporosis. 2. Baseline examination. 3. See below National Osteoporosis Foundation guidelines on when to potentially initiate pharmacologic therapy. Based on the National Osteoporosis Foundation Guidelines, pharmacologic treatment should be initiated in any of the following, unless clinical conditions suggest otherwise: * Any patient with prior fragility fracture of the hip or vertebrae. A spine fracture indicates 5X risk for subsequent spine fracture and 2X risk for subsequent hip fracture. * Osteoporosis (T-score <-2.5). * Postmenopausal women and men age 50 and older with low bone mass/osteopenia (T-score between -1.0 and -2.5) by DXA and 10-year major osteoporotic fracture greater than 20% or a 10-year probability of hip fracture greater than 3%. These fracture risks are supplied above in the FRAX score, if applicable. * Clinician judgement and/or patient preferences may indicate treatment for people with 10-year fracture probabilities above or below these levels. Dictated by: Dictated on workstation # [id number]
== END ==
LOC: RAD 08:52
PROVIDERS: ATTEND Physician Assistant
DX: Z13.820 Encounter for screening for osteoporosis (principal); M81.0 Age-related osteoporosis without current pathological fracture; Z78.0 Asymptomatic menopausal state
CPT/HCPCS: 77080

== ENCOUNTER → 2020-01-23 | Outpatient (CLI) | payer MEDICAID ==
[2020-01-06 09:51] LABS: BUN/CREATININE RATIO 12; CREATININE SERUM 0.78 MG/DL (0.60-1.30); GFR ESTIMATED > 60
--- NOTE | 2020-01-06 10:08 | NUR ---
PT CAME FOR PFT TEST; WHEN I CHECKED PT'S TEMPERATURE, SHE HAD A HIGH TEMPERATURE OF 38.0 DEGREES C.; I RECHECKED TEMPERATURE, BUT IT STILL REGISTERED A HIGH TEMPERATURE OF 37.5 DEGREES C. DUE TO COVID PROTOCOL, PT CANNOT PERFORM PFT TEST AT THIS TIME; DUE TO RISK FOR PT AND EXPOSURE TO OTHER PTS. PT IS RESCHEDULED FOR PFT ON JANUARY 23, 2020 AT 0800; TEMPERATURE WILL BE RECHECKED AT THAT TIME. ORDERING PHYSICIAN'S OFFICE WAS CONTACTED AND NOTIFIED. PT WAS INSTRUCTED TO MONITOR HER TEMPERATURE AND TO FOLLOW UP WITH PRIMARY PHYSICIAN IF ELEVATED TEMPERATURE CONTINUES OR IF SHE STARTS TO HAVE SOA, COUGHING AND/OR OTHER RESPIRATORY ISSUES. PT DID STATE TO ME SHE HAD BEEN SEEN FOR CHEST PAIN LAST WEEK, BUT THAT SHE WAS PRESCRIBED MEDICATION FOR PAIN AND THAT PAIN HAD SUBSIDED.
--- NOTE | 2020-01-06 10:47 | Diagnostic Imaging Report ---
EXAMINATION: CT Chest with intravenous contrast. TECHNIQUE: Multiple contiguous axial images were obtained through the chest after the uneventful administration of intravenous contrast. All CT scans use one or more of the following dose optimizing techniques: automated exposure control, MA and/or KvP adjustment based on a patient size and exam type, or iterative reconstruction. HISTORY: COPD,TOBACCO USER COMPARISON: CT chest 01/17/2019. FINDINGS: Thyroid: The thyroid is normal. Mediastinum: Heart size is normal without significant pericardial effusion. Calcifications of the aorta and coronary vessels. Thoracic aorta is normal in caliber. No obvious filling defects within the pulmonary arteries. No suspicious lymphadenopathy. Lungs and airways: Emphysema of both lungs. No new consolidation, pleural effusion, or pneumothorax. Stable large calcified granuloma within the right middle lobe (series 3, image 97). Bibasilar linear atelectasis. Stable calcified left pleural plaque. The airways are normal. Upper abdomen: The subphrenic structures are normal. Musculoskeletal: No suspicious osseous lesion or compression fracture. Partially visualized cervical fusion hardware. IMPRESSION: 1. Stable findings of emphysema without other acute abnormality in the chest. Dictated by: Dictated on workstation # [id number]
[~2020-01-23] MED LIST changes: +HOLD METFORMIN - RECEIVED CONTRAST 20 ML VIAL IV SCH; +IOHEXOL 350 MG/ML 100 ML (OMNIPAQUE 350) VIAL IV ONE; +NS 100 ML (IVPB) BAG IV ONE; +RT-ALBUTEROL SULF 2.5 MG/3 ML PRE-MIX VIAL INH ONE
[2020-01-23 07:23] LABS: BUN/CREATININE RATIO 23; CREATININE SERUM 0.74 MG/DL (0.60-1.30); GFR ESTIMATED > 60
--- NOTE | 2020-01-23 10:09 | Diagnostic Imaging Report ---
EXAMINATION: CT Chest with intravenous contrast. TECHNIQUE: Multiple contiguous axial images were obtained through the chest after the uneventful administration of intravenous contrast. All CT scans use one or more of the following dose optimizing techniques: automated exposure control, MA and/or KvP adjustment based on a patient size and exam type, or iterative reconstruction. HISTORY: Left-sided chest wall pain and cough. COMPARISON: 01/06/2020 FINDINGS: There is no edema or pneumonia. No pleural effusion. No pneumothorax. No suspicious nodules. Calcified right middle lobe nodule is stable and may represent a hamartoma as the calcifications appear somewhat lamellated. There are stable calcified left-sided pleural plaques. Lungs are moderately emphysematous. There is no axillary or supraclavicular lymphadenopathy. There is no mediastinal lymphadenopathy. Heart size is normal. There are no coronary artery calcifications. No pericardial effusion. Aorta is normal in caliber. Limited views of the upper abdomen are unremarkable. There are no suspicious osseus lesions. IMPRESSION: 1. Emphysematous but clear lungs. 2. Stable calcified pleural plaques and left lung are likely related to prior empyema or hemothorax. Dictated by: Dictated on workstation # [id number]
== END ==
LOC: RT 01-06 09:15
PROVIDERS: ATTEND Internal Medicine Critical Care Medicine
DX: Z01.812 Encounter for preprocedural laboratory examination (principal); J44.9 Chronic obstructive pulmonary disease, unspecified
CPT/HCPCS: 36415; 71260; 82565; 84520; 94060; 94726; 94729

== ENCOUNTER → 2020-06-07 | Outpatient (CLI) | payer MEDICAID ==
[~2020-06-07] MED LIST changes: -AMIT10TA6 PO; +AMT10T PO; -HOLD METFORMIN - RECEIVED CONTRAST 20 ML VIAL IV SCH; -IOHEXOL 350 MG/ML 100 ML (OMNIPAQUE 350) VIAL IV ONE; +METH-732 PO; -METH750T3 PO; -NS 100 ML (IVPB) BAG IV ONE; -RT-ALBUTEROL SULF 2.5 MG/3 ML PRE-MIX VIAL INH ONE
== END ==
LOC: LABNPT 06:06
PROVIDERS: ATTEND Nurse Practitioner Family
DX: R05 Cough (principal); Z20.822 Contact with and (suspected) exposure to COVID-19
CPT/HCPCS: 87635

== ENCOUNTER → 2020-06-13 | Outpatient (CLI) | payer MEDICAID ==
[~2020-06-13] MED LIST changes: +CATHETER FLUSH 10 ML SYR IV PRN; +HOLD METFORMIN - RECEIVED CONTRAST 20 ML VIAL IV SCH; +IOHEXOL 350 MG/ML 100 ML (OMNIPAQUE 350) VIAL IV ONE; +NS 100 ML (IVPB) BAG IV ONE
[2020-06-13 07:40] LABS: GFR ESTIMATED > 60
[2020-06-13 07:41] LABS: BUN/CREATININE RATIO 23
--- NOTE | 2020-06-13 09:04 | Diagnostic Imaging Report ---
PROCEDURE: CT chest with contrast only. TECHNIQUE: Multiple contiguous axial images were obtained through the chest after administration of intravenous contrast. Auto Exposure Controls were utilized during the CT exam to meet ALARA standards for radiation dose reduction. DATE: June 13, 2020. COMPARISON: CT chest January 23, 2020. January 06, 2020. January 17, 2019. March 16, 2017. INDICATION: 60-year-old female, pain underneath both breasts with swelling for 1 to 2 weeks. History of chronic obstructive pulmonary disease. FINDINGS: There is mild pleural parenchymal scarring in the lung apices bilaterally. There is a benign calcified nodule in the right middle lobe measuring up to 1.7 cm in size on axial image 94, unchanged since March 16, 2017. There are mild upper lobe predominant findings of centrilobular emphysema. There are calcified left-sided pleural plaques. There are mild linear opacities in the left lower lobe, consistent with mild scarring, which are unchanged since March 16, 2017. There is no identified noncalcified pulmonary nodule. There is no lung mass. There is no additional focal airspace consolidation. There is no pneumothorax. There is no pleural effusion. The central airways are patent. There is no identified pulmonary embolus. The main pulmonary artery is normal in caliber. The heart is not enlarged. There is no pericardial effusion. There is no identified abnormally enlarged mediastinal, hilar, or axillary lymph node which meets CT size criteria for adenopathy. Imaged portions of the upper abdomen are grossly unremarkable. There is incompletely imaged cervical spine hardware. There is a sclerotic lesion in the right scapula on axial image 13 measuring 7 mm in size with internal attenuation of 1341 Hounsfield units. This most likely relates to a benign bone island. CT assessment of the soft tissues in the region of the right and left breasts is without identified abnormality. CT is not sensitive for detection of breast cancer. IMPRESSION: 1. No identified acute cardiopulmonary abnormality. 2. Benign centrally calcified right middle lobe pulmonary nodule. 3. Redemonstrated calcified left pleural plaques. 4. No CT apparent soft tissue abnormality in the region of the right or left breast. CT is not sensitive for detection of breast cancer. Dictated by: Dictated on workstation # [id number]
== END ==
LOC: RAD 08:45
PROVIDERS: ATTEND Nurse Practitioner Family
DX: J44.9 Chronic obstructive pulmonary disease, unspecified (principal); J92.9 Pleural plaque without asbestos; R91.1 Solitary pulmonary nodule
CPT/HCPCS: 36415; 71260; 82565; 84520

== ENCOUNTER → 2020-07-20 | Outpatient (CLI) | payer MEDICAID ==
[~2020-07-20] MED LIST changes: -CATHETER FLUSH 10 ML SYR IV PRN; -HOLD METFORMIN - RECEIVED CONTRAST 20 ML VIAL IV SCH; -IOHEXOL 350 MG/ML 100 ML (OMNIPAQUE 350) VIAL IV ONE; -NS 100 ML (IVPB) BAG IV ONE
== END ==
LOC: CARD 11:30
PROVIDERS: ATTEND Internal Medicine Cardiovascular Disease
DX: R07.9 Chest pain, unspecified (principal); I10 Essential (primary) hypertension
CPT/HCPCS: 93306

== ENCOUNTER → 2020-09-12 | Outpatient (CLI) | payer MEDICAID ==
[~2020-09-12] VITALS: Ht 172 cm; Wt 57.0 kg
[~2020-09-12] MED LIST changes: +CATHETER FLUSH 10 ML SYR IV PRN; +REGADENOSON 0.4 MG/5 ML SYR (LEXISCAN) IV ONE
[2020-09-12 09:26] VITALS: BP 137/90
--- NOTE | 2020-09-12 11:46 | Cardiology Stress Test Report ---
Stress Test Report Date of Procedure/Referring: Date of Procedure: Sep 12, 2020 PCP Sarah Mcdonald MD Admitting Physician Malcolm Barker Indications: Hypertension Baseline Heart Rate: 71 Baseline Blood Pressure: Blood Pressure Systolic: 137 Blood Pressure Diastolic: 90 Baseline Vitals Vital Signs Date Time Temp Pulse Resp B/P (MAP) Pulse Ox O2 Delivery O2 Flow Rate FiO2 09/12/20 09:26 71 137/90 (106) 99 Baseline EKG: Baseline EKG: NSR Summary After explaining the procedure to the patient, she signed a consent and then brought to the stress nuclear laboratory. Patient received 0.4 mg Lexiscan for stress test, ECG, heart rate and blood pressure were monitored continuously. Resting and stress dose of radio tracer w ere injected, imaging was acquired and reviewed in short axis, horizontal long axis and vertical long axis views. TID: 1.13 SSS: 5 SDS: 0 EF: 53 1. Patient tolerated Lexiscan well 2. No significant ischemia or infarction on SPECT images 3. Normal left ventricular size, EF 53% SARAH MCDONALD MD Sep 12, 2020 11:46
== END ==
LOC: CARD 08-29 10:33
PROVIDERS: ATTEND Internal Medicine Cardiovascular Disease
DX: I10 Essential (primary) hypertension (principal); R07.9 Chest pain, unspecified
CPT/HCPCS: 78452; 93017; A9502